=== PATIENT | male | born 1985 | race Two or more races ===

== ENCOUNTER 2019-12-31 04:19 | Inpatient (IN) | payer MEDICAID ==
[~2019-12-31] VITALS: Ht 157.5 cm; Wt 64.0 kg
[2019-12-31 04:38] VITALS: BP 128/79
[2019-12-31] MEDS ORDERED: Dicyclomine HCl 10mg/5ml oral soln ORAL ONE (05:00)
[2019-12-31] MEDS ORDERED: Lidocaine 2% Visc 15ml soln ORAL ONE (05:00)
[2019-12-31] MEDS ORDERED: Mylanta II UD 30ml ORAL ONE (05:00)
[2019-12-31] MEDS ORDERED: Omnipaque-300 100ml vial INJ PRN (05:00)
[2019-12-31 05:07] LABS: APPEARANCE,URINE CLEAR; BILIRUBIN, URINE NEGATIVE (NEGATIVE); GLUCOSE, URINE (UA) NEGATIVE (NEGATIVE); KETONES,URINE 2+ (NEGATIVE); LEUKOCYTE ESTERASE ,URINE 1+ (NEGATIVE); NITRITE,URINE NEGATIVE (NEGATIVE); PH,URINE 7 (4.5-8.0); PROTEIN,URINE 3+ (NEGATIVE); UROBILINOGEN,URINE 1 MG/DL (0.0-1.0)
[2019-12-31 05:32] LABS: BASOPHILS % (AUTO) 0.8 % (0.0-2.0); EOSINOPHILS % (AUTO) 0.2 % (0.0-3.0); HEMATOCRIT 51.8 % (42.0-52.0); LYMPHOCYTES % (AUTO) 13.2 % (20.0-45.0); MEAN CORPUSCULAR VOLUME 89 FL (80-99); MONOCYTES % (AUTO) 9.5 % (1.0-10.0); NEUTROPHILS % (AUTO) 76.3 % (45.0-75.0); PLATELET COUNT 143 K/UL (150-450); RED BLOOD COUNT 5.81 M/UL (4.70-6.10); RED CELL DISTRIBUTION WIDTH 11.3 % (11.6-14.8); WHITE BLOOD COUNT 10.7 K/UL (4.8-10.8)
[2019-12-31 05:38] LABS: ANION GAP 10 mmol/L (5-15); BLOOD UREA NITROGEN 8 mg/dL (7-18); CALCIUM 8.8 MG/DL (8.5-10.1); CARBON DIOXIDE 27 MMOL/L (21-32); CHLORIDE 99 MMOL/L (98-107); CREATININE 0.9 MG/DL (0.55-1.30); POTASSIUM 3.4 MMOL/L (3.5-5.1); SODIUM 136 MMOL/L (136-145)
[2019-12-31 05:45] LABS: ALANINE AMINOTRANSFERASE 80 U/L (12-78); ALBUMIN 4.4 G/DL (3.4-5.0); ALBUMIN/GLOBULIN RATIO 1.3 (1.0-2.7); ALKALINE PHOSPHATASE 57 U/L (46-116); ASPARTATE AMINO TRANSFERASE 99 U/L (15-37); BILIRUBIN,TOTAL 2.2 MG/DL (0.2-1.0)
[2019-12-31 05:46] LABS: COLOR,URINE AMBER
[2019-12-31 05:51] LABS: BILIRUBIN,DIRECT 0.5 MG/DL (0.0-0.3)
--- NOTE | 2019-12-31 06:19 | Emergency Room Report ---
History of Present Illness General Chief Complaint: Abdominal Pain Source: Patient Present Illness HPI Patient is a 34-year-old male presents for increased abdominal discomfort. Reports having 3 days of epigastric pain associated nausea. Reports having some vomiting as well as decreased appetite. States has not been able to eat without any pain. Reports having pain radiating to his back. Prior history of alcohol abuse and states he used to drink heavily but does not drink for several weeks. Denies any hematemesis. Had not been have any bloody stools. Allergies: Coded Allergies: No Known Allergies (Unverified , 12/31/19) COVID-19 Screening Contact w/high risk pt: No Experienced COVID-19 symptoms?: No COVID-19 Testing performed SURFACE MINER: No Patient History Past Medical History: see triage record Reviewed Nursing Documentation: PMH: Agreed; PSxH: Agreed Nursing Documentation-PMH Past Medical History: No Stated History Review of Systems All Other Systems: negative except mentioned in HPI Physical Exam Vital Signs Date Time Temp Pulse Resp B/P (MAP) Pulse Ox O2 Delivery O2 Flow Rate FiO2 12/31/19 04:29 97.9 80 18 136/82 (100) 94 Room Air Sp02 EP Interpretation: reviewed, normal General Appearance: normal inspection, well appearing, no apparent distress, alert, GCS 15 Head: atraumatic ENT: normal ENT inspection, hearing grossly normal, normal voice Neck: normal inspection, full range of motion, supple, no bony tend Respiratory: normal inspection, lungs clear, normal breath sounds, no respiratory distress, no retraction, no wheezing Cardiovascular #1: regular rate, rhythm, no edema Gastrointestinal: normal inspection, normal bowel sounds, soft, no guarding, no hernia, tenderness - epigastric tenderness Genitourinary: no CVA tenderness Musculoskeletal: normal inspection, back normal, normal range of motion Neurologic: alert, responsive, speech normal, normal inspection Psychiatric: normal inspection, judgement/insight normal, mood/affect normal Medical Decision Making Diagnostic Impression: Primary Impression: Pancreatitis Additional Impression: Alcohol abuse ER Course Patient presented for abdominal pain. Differential diagnosis include was not limited to pancreatitis, bowel obstruction, gastritis, ulcer disease among others. Because of complexity of patient's case laboratory tests and imaging st udies were ordered. Laboratory studies showed elevated bilirubin as well as markedly elevated lipase. He started on IV fluids and given IV pain medications. Patient's pancreatitis may be related to alcohol use however he denies alcohol use recently. He did not have any improvement with a GI cocktail. Dr. Covarrubias was contacted for inpatient management. Labs Test 12/31/19 04:46 12/31/19 06:05 White Blood Count 10.7 K/UL (4.8-10.8) Red Blood Count 5.81 M/UL (4.70-6.10) Hemoglobin 19.0 G/DL (14.2-18.0) Hematocrit 51.8 % (42.0-52.0) Mean Corpuscular Volume 89 FL (80-99) Mean Corpuscular Hemoglobin 32.8 PG (27.0-31.0) Mean Corpuscular Hemoglobin Concent 36.7 G/DL (32.0-36.0) Red Cell Distribution Width 11.3 % (11.6-14.8) Platelet Count 143 K/UL (150-450) Mean Platelet Volume 9.5 FL (6.5-10.1) Neutrophils (%) (Auto) 76.3 % (45.0-75.0) Lymphocytes (%) (Auto) 13.2 % (20.0-45.0) Monocytes (%) (Auto) 9.5 % (1.0-10.0) Eosinophils (%) (Auto) 0.2 % (0.0-3.0) Basophils (%) (Auto) 0.8 % (0.0-2.0) Prothrombin Time 10.9 SEC (9.30-11.50) Prothromb Time International Ratio 1.0 (0.9-1.1) Activated Partial Thromboplast Time 28 SEC (23-33) Urine Color Anita Urine Appearance Clear Urine pH 7 (4.5-8.0) Urine Specific [place] 1.015 (1.005-1.035) Urine Protein 3+ (NEGATIVE) Urine Glucose (UA) Negative (NEGATIVE) Urine Ketones 2+ (NEGATIVE) Urine Blood 2+ (NEGATIVE) Urine Nitrite Negative (NEGATIVE) Urine Bilirubin Negative (NEGATIVE) Urine Urobilinogen 1 MG/DL (0.0-1.0) Urine Leukocyte Esterase 1+ (NEGATIVE) Sodium Level 136 MMOL/L (136-145) Potassium Level 3.4 MMOL/L (3.5-5.1) Chloride Level 99 MMOL/L (98-107) Carbon Dioxide Level 27 MMOL/L (21-32) Anion Gap 10 mmol/L (5-15) Blood Urea Nitrogen 8 mg/dL (7-18) Creatinine 0.9 MG/DL (0.55-1.30) Estimat Glomerular Filtration Rate > 60 mL/min (>60) Glucose Level 119 MG/DL (74-106) Calcium Level 8.8 MG/DL (8.5-10.1) Total Bilirubin 2.2 MG/DL (0.2-1.0) Direct Bilirubin 0.5 MG/DL (0.0-0.3) Aspartate Amino Transf (AST/SGOT) 99 U/L (15-37) Alanine Aminotransferase (ALT/SGPT) 80 U/L (12-78) Alkaline Phosphatase 57 U/L (46-116) Troponin I 0.000 ng/mL (0.000-0.056) Total Protein 7.8 G/DL (6.4-8.2) Albumin 4.4 G/DL (3.4-5.0) Globulin 3.4 g/dL Albumin/Globulin Ratio 1.3 (1.0-2.7) Lipase 5480 U/L (73-393) Last Vital Signs Date Time Temp Pulse Resp B/P (MAP) Pulse Ox O2 Delivery O2 Flow Rate FiO2 12/31/19 04:38 97.9 75 18 128/79 97 Room Air Disposition: ADMITTED INPATIENT Condition: Stable Referrals: NOT CHOSEN IPA/,REFERRING (PCP) John Smith MD Dec 31, 2019 06:19
[2019-12-31] MEDS ORDERED: Morphine Sulfate 4mg/ml Inj (IV USE ONLY) IVP ONE (06:30)
--- NOTE | 2019-12-31 07:07 | Diagnostic Imaging Report ---
EXAM: CT Abdomen and Pelvis With Intravenous Contrast CLINICAL HISTORY: PAIN TECHNIQUE: Axial computed tomography images of the abdomen and pelvis with intravenous contrast. CTDI is 4.50 mGy and DLP is 227.90 mGy-cm. One or more of the following dose reduction techniques were used: automated exposure control, adjustment of the mA and/or kV according to patient size, use of iterative reconstruction technique. COMPARISON: No relevant imaging studies available. FINDINGS: Lower thorax: Mild dependent atelectasis, left greater than right. Liver: Diffuse low-attenuation throughout the liver parenchyma. No focal liver lesion. Liver contour is smooth. Portal vein is patent. The liver measures 20.7 cm craniocaudal dimension. Gallbladder and biliary tree: Gallbladder is unremarkable. No biliary dilatation. Spleen: Normal volume. Pancreas: There is pancreatic fat stranding. There is also an ovoid hypoattenuating fluid collection anterior inferior to the pancreatic head measuring 4.5 cm x 3.2 cm x 3.2 cm; no air is identified within this fluid collection. There is a second hyperattenuating fluid collection anterior to the pancreatic tail measuring 3.6 cm x 1.8 cm x 1.6 cm; no air is identified within this fluid. There is enhancement of the pancreas parenchyma. Splenic artery is grossly unremarkable. The proximal and mid distal vein is patent but the distal splenic vein is diminutive. Adrenal glands: Unremarkable. Kidneys: Symmetric renal enhancement. No hydronephrosis. Vasculature: Abdominal aorta is normal in diameter. Lymph nodes: No retroperitoneal or mesenteric lymphadenopathy. Peritoneum: Small volume of pelvic free fluid. No free air. GI tract: There is mild mucosal thickening of the first second, and third segments of the duodenum, likely reactive from pancreatitis. No bowel obstruction. Normal appendix. Urinary bladder: Partially distended. Ureteral jet of contrast is noted on the left. Reproductive organs: Unremarkable. Soft tissues: No acute abdominal wall findings. Bones: No acute skeletal findings. IMPRESSION: 1. Acute pancreatitis with two adjacent cystic structures, one anterior to the pancreatic head and the second located anterior to the pancreatic tail. These likely represent pseudocysts. 2. Mild mucosal thickening of the duodenum likely reactive secondary to the pancreatitis. Duodenitis can have a similar appearance but felt to be less likely. 3. Hepatic steatosis and mild hepatomegaly.
[2019-12-31 07:10] VITALS: BP 119/76
[2019-12-31 08:22] VITALS: BP 140/88
--- NOTE | 2019-12-31 08:40 | History and Physical ---
History of Present Illness General Date patient seen: Dec 31, 2019 Reason for Hospitalization: Abdominal Pain Present Illness HPI 34 year old male with history of pancreatitis few months ago presented with abdominal pain. Epigastric, radiating to the back, associated with nausea and vomitting. Has been drinking heavily. Because he "likes it". He has been unable to eat due to severe pain. Denies blood in his vomitus or in his stool. no recent travel or sick contacts. PMH:Pancreatitis Past surgical history: none Social history: heavy etoh use, denies tobacco or illicit drugs Family history: Father alcoholic but has stopped drinikiing Allergies: Coded Allergies: No Known Allergies (Unverified , 12/31/19) COVID-19 Screening Contact w/high risk pt: No Experienced COVID-19 symptoms?: No Patient History Healthcare decision maker Resuscitation status Advanced Directive on File Review of Systems Constitutional: Denies: no symptoms, see HPI, chills, sweats, fever, malaise, weakness, other Eye: Denies: no symptoms, see HPI, eye pain, blurred vision, tearing, double vision, nose pain, nose congestion, acuity changes, discharge, other ENT: Denies: no symptoms, see HPI, ear pain, ear discharge, nose pain, nose congestion, throat pain, throat swelling, mouth pain, hearing loss, nasal discharge, other Respiratory: Denies: no symptoms, see HPI, cough, orthopnea, shortness of breath, stridor, wheezing, LYMAN, sputum, other Cardiovascular: Denies: no symptoms, see HPI, chest pain, edema, palpitations, syncope, PND, other Gastrointestinal: Reports: see HPI, abdominal pain, nausea, vomiting Genitourinary: Denies: no symptoms, see HPI, discharge, dysuria, frequency, hematuria, pain, retention, incontinence, urgency, vag bleed/dc, other Musculoskeletal: Denies: no symptoms, see HPI, back pain, gout, joint pain, joint swelling, muscle pain, muscle stiffness, other Skin: Denies: no symptoms, see HPI, rash, change in color, change in hair/nails, dryness, lesions, other Psychiatric: Denies: no symptoms, see HPI, prior hx, anxiety, depressed feelings, emotional problems, SI, HI, hallucinations, other Neurological: Denies: no symptoms, see HPI, headache, numbness, paresthesia, seizure, tingling, tremors, focal weakness, syncope, dizziness, other Endocrine: Denies: no symptoms, see HPI, excessive sweating, flushing, intolerance to temperature, increased thirst, increased urine, unexplained weight loss, other Hematologic/Lymphatic: Denies: no symptoms, see HPI, anemia, blood clots, easy bleeding, easy bruising, swollen glands, diathesis, other Physical Exam General Appearance: WD/WN, no apparent distress, alert Lines, tubes and drains: peripheral HEENT: normocephalic, anicteric, mucous membranes moist, PERRL, EOMI Neck: non-tender, normal alignment, supple, normal inspection Respiratory/Chest: chest wall non-tender, lungs clear, normal breath sounds, no respiratory distress, no accessory muscle use Cardiovascular/Chest: normal peripheral pulses, normal rate, regular rhythm Abdomen: normal bowel sounds, soft, distended, tender - epigastirc Extremities: normal range of motion, non-tender, no calf tenderness, no edema Skin Exam: normal pigmentation Musculoskeletal: normal muscle bulk Last 24 Hour Vital Signs Date Time Temp Pulse Resp B/P (MAP) Pulse Ox O2 Delivery O2 Flow Rate FiO2 12/31/19 08:22 97.4 76 16 140/88 (105) 97 12/31/19 08:03 97.9 86 20 122/70 100 Room Air 12/31/19 07:10 98.2 74 16 119/76 99 Room Air 12/31/19 06:55 97.9 12/31/19 04:38 97.9 75 18 128/79 97 Room Air 12/31/19 04:38 75 18 Room Air 12/31/19 04:29 97.9 80 18 136/82 (100) 94 Room Air Intake and Output 12/30/19 12/31/19 19:00 07:00 Intake Total 1000 ml Balance 1000 ml Intake Oral 0 ml IV Total 1000 ml Laboratory Tests Test 12/31/19 04:46 12/31/19 06:05 White Blood Count 10.7 K/UL (4.8-10.8) Red Blood Count 5.81 M/UL (4.70-6.10) Hemoglobin 19.0 G/DL (14.2-18.0) *H Hematocrit 51.8 % (42.0-52.0) Mean Corpuscular Volume 89 FL (80-99) Mean Corpuscular Hemoglobin 32.8 PG (27.0-31.0) H Mean Corpuscular Hemoglobin Concent 36.7 G/DL (32.0-36.0) H Red Cell Distribution Width 11.3 % (11.6-14.8) L Platelet Count 143 K/UL (150-450) L Mean Platelet Volume 9.5 FL (6.5-10.1) Neutrophils (%) (Auto) 76.3 % (45.0-75.0) H Lymphocytes (%) (Auto) 13.2 % (20.0-45.0) L Monocytes (%) (Auto) 9.5 % (1.0-10.0) Eosinophils (%) (Auto) 0.2 % (0.0-3.0) Basophils (%) (Auto) 0.8 % (0.0-2.0) Prothrombin Time 10.9 SEC (9.30-11.50) Prothromb Time International Ratio 1.0 (0.9-1.1) Activated Partial Thromboplast Time 28 SEC (23-33) Urine Color Anita Urine Appearance Clear Urine pH 7 (4.5-8.0) Urine Specific [place] 1.015 (1.005-1.035) Urine Protein 3+ (NEGATIVE) H Urine Glucose (UA) Negative (NEGATIVE) Urine Ketones 2+ (NEGATIVE) H Urine Blood 2+ (NEGATIVE) H Urine Nitrite Negative (NEGATIVE) Urine Bilirubin Negative (NEGATIVE) Urine Ictotest Neg (NEGATIVE) Urine Urobilinogen 1 MG/DL (0.0-1.0) H Urine Leukocyte Esterase 1+ (NEGATIVE) H Urine RBC 2-4 /HPF (0 - 0) H Urine WBC 0 /HPF (0 - 0) Urine Squamous Epithelial Cells None /LPF (NONE/OCC) Urine Bacteria None /HPF (NONE) Urine Mucus Moderate /LPF (NONE/OCC) H Sodium Level 136 MMOL/L (136-145) Potassium Level 3.4 MMOL/L (3.5-5.1) L Chloride Level 99 MMOL/L (98-107) Carbon Dioxide Level 27 MMOL/L (21-32) Anion Gap 10 mmol/L (5-15) Blood Urea Nitrogen 8 mg/dL (7-18) Creatinine 0.9 MG/DL (0.55-1.30) Estimat Glomerular Filtration Rate > 60 mL/min (>60) Glucose Level 119 MG/DL (74-106) H Calcium Level 8.8 MG/DL (8.5-10.1) Total Bilirubin 2.2 MG/DL (0.2-1.0) H Direct Bilirubin 0.5 MG/DL (0.0-0.3) H Aspartate Amino Transf (AST/SGOT) 99 U/L (15-37) H Alanine Aminotransferase (ALT/SGPT) 80 U/L (12-78) H Alkaline Phosphatase 57 U/L (46-116) Troponin I 0.000 ng/mL (0.000-0.056) Total Protein 7.8 G/DL (6.4-8.2) Albumin 4.4 G/DL (3.4-5.0) Globulin 3.4 g/dL Albumin/Globulin Ratio 1.3 (1.0-2.7) Lipase 5480 U/L (73-393) H Serum Alcohol < 3 mg/dL Height (Feet): 5 Height (Inches): 2.00 Weight (Pounds): 140 Medications Current Medications Medications (Trade) Dose Ordered Sig/Toro Route PRN Reason Start Time Stop Time Status Last Admin Dose Admin Iohexol (OMNIPAQUE-300 100ml) 100 ml NOW PRN INJ Radiology Procedure 12/31/19 05:00 01/02/20 04:59 Assessment/Plan Problem List: (1) Pseudocyst of pancreas ICD Codes: K86.3 - Pseudocyst of pancreas SNOMED: 427957604 (2) Pancreatitis ICD Codes: K85.90 - Acute pancreatitis without necrosis or infection, unspecified SNOMED: 16614122 (3) Alcohol abuse ICD Codes: F10.10 - Alcohol abuse, uncomplicated SNOMED: 40327521 Status: stable Assessment/Plan: 34 year old male with history of etoh pancreatitis presents with another episode of pancreatitis. CT abdomen pelvis revealed pancreatitis with pseudocyst. #Pancreatitis with psudocyst #Etoh abuse admit medsurg aggressive ivf I's and O's thiamine GI and surgery consults counselled extensively regarding etoh abuse and dangers of continued use. #Hypokalemia replace vte ppx: Lovenox GI ppx PPI Code status: full code I spent 72 minutes on this encounter. 35 minutes spent on counselling and care coordination. Plan of care d/w patient, RN and consultants. Melvin Covarrubias M.D. Dec 31, 2019 08:39
[2019-12-31] MEDS ORDERED: Milk of Magnesia 30ml Ud ORAL PRN (08:45)
[2019-12-31] MEDS ORDERED: Miralax 17gm pkt ORAL PRN (08:45)
[2019-12-31] MEDS ORDERED: Zolpidem 5mg tab ORAL PRN (08:45)
[2019-12-31] MEDS ORDERED: LORazepam Inj 2mg/ml 1ml IV PRN (08:45)
[2019-12-31] MEDS ORDERED: Albuterol/Ipratropium 3ml neb HHN PRN (08:45)
[2019-12-31] MEDS: HYDROmorphone 1mg/ml Carpuject IVP PRN ×3 (09:31→23:02)
--- NOTE | 2019-12-31 10:11 | General Progress Note ---
Subjective ROS Limited/Unobtainable: Yes Allergies: Coded Allergies: No Known Allergies (Unverified , 12/31/19) Objective Last 24 Hour Vital Signs Date Time Temp Pulse Resp B/P (MAP) Pulse Ox O2 Delivery O2 Flow Rate FiO2 12/31/19 09:49 Room Air 12/31/19 08:22 97.4 76 16 140/88 (105) 97 12/31/19 08:03 97.9 86 20 122/70 100 Room Air 12/31/19 07:10 98.2 74 16 119/76 99 Room Air 12/31/19 06:55 97.9 12/31/19 04:38 97.9 75 18 128/79 97 Room Air 12/31/19 04:38 75 18 Room Air 12/31/19 04:29 97.9 80 18 136/82 (100) 94 Room Air Intake and Output 12/30/19 12/31/19 19:00 07:00 Intake Total 1000 ml Balance 1000 ml Intake Oral 0 ml IV Total 1000 ml Laboratory Tests 12/31/19 04:46: White Blood Count 10.7, Red Blood Count 5.81, Hemoglobin 19.0*H, Hematocrit 51.8, Mean Corpuscular Volume 89, Mean Corpuscular Hemoglobin 32.8H, Mean Corpuscular Hemoglobin Concent 36.7H, Red Cell Distribution Width 11.3L, Platelet Count 143L, Mean Platelet Volume 9.5, Neutrophils (%) (Auto) 76.3H, Lymphocytes (%) (Auto) 13.2L, Monocytes (%) (Auto) 9.5, Eosinophils (%) (Auto) 0.2, Basophils (%) (Auto) 0.8, Prothrombin Time 10.9, Prothromb Time International Ratio 1.0, Activated Partial Thromboplast Time 28, Urine Color Anita, Urine Appearance Clear, Urine pH 7, Urine Specific [place] 1.015, Urine Protein 3+H, Urine Glucose (UA) Negative, Urine Ketones 2+H, Urine Blood 2+H, Urine Nitrite Negative, Urine Bilirubin Negative, Urine Ictotest Neg, Urine Urobilinogen 1H, Urine Leukocyte Esterase 1+H, Urine RBC 2-4H, Urine WBC 0, Urine Squamous Epithelial Cells None, Urine Bacteria None, Urine Mucus ModerateH , Sodium Level 136, Potassium Level 3.4L, Chloride Level 99, Carbon Dioxide Level 27, Anion Gap 10, Blood Urea Nitrogen 8, Creatinine 0.9, Estimat Glomerular Filtration Rate > 60, Glucose Level 119H, Calcium Level 8.8, Total Bilirubin 2.2H, Direct Bilirubin 0.5H, Aspartate Amino Transf (AST/SGOT) 99H, Alanine Aminotransferase (ALT/SGPT) 80H, Alkaline Phosphatase 57, Troponin I 0.000, Total Protein 7.8, Albumin 4.4, Globulin 3.4, Albumin/Globulin Ratio 1.3, Lipase 5480H 12/31/19 06:05: Serum Alcohol < 3 Height (Feet): 5 Height (Inches): 2.00 Weight (Pounds): 140 General Appearance: alert EENT: normal ENT inspection Neck: supple Cardiovascular: tachycardia Respiratory/Chest: decreased breath sounds Abdomen: hypoactive bowel sounds, tender Extremities: non-tender Assessment/Plan Assessment/Plan: ETOH pancreatitis with pseudocyst fatty liver npo ivf pain control thiamine repeat labs Blaze Velasquez MD Dec 31, 2019 10:11
[2019-12-31] MEDS: Pantoprazole Inj IV SCH (11:44)
[2019-12-31] MEDS: Enoxaparin 40mg Inj SUBQ SCH (11:45)
[2019-12-31 12:00] VITALS: BP 144/101
[2019-12-31] MEDS: Thiamine HCl 100 MG in D5W 55 ML IVPB SCH (12:30)
[2019-12-31] MEDS: NS w/KCl 20mEq 1000ml 1,000 ML IV SCH ×3 (12:31→21:12)
--- NOTE | 2019-12-31 14:47 | Consultation ---
History of Present Illness General Date patient seen: Dec 31, 2019 Reason for Hospitalization: Abdominal Pain Present Illness HPI This is a pleasant 34-year-old male with EtOH history significant states began developed arm pain 3 days ago epigastric nature radiation to the back associated nausea no emesis. Positive bowel movement and flatus. Pain cramping generalized pain with distention abdominal 6 out of 10 max 10 out of 10. Identified to have pancreatic cyst pancreatitis admitted further care management surgery called to evaluate assist with care patient seen, patient evaluated, chart reviewed Allergies: Coded Allergies: No Known Allergies (Unverified , 12/31/19) COVID-19 Screening Contact w/high risk pt: No Experienced COVID-19 symptoms?: No Patient History History Provided By: Patient, Medical Record, PMD Healthcare decision maker Resuscitation status Advanced Directive on File Past Medical/Surgical History Past Medical/Surgical History: (1) Pseudocyst of pancreas (2) Alcohol abuse (3) Pancreatitis Review of Systems Review of Symptoms General ROS: no weight loss or fever Psychological ROS: no depression or mood changes, no memory loss Ophthalmic ROS: no visual changes or eye irritation ENT ROS: no nasal congestion, hearing loss, dizziness Allergy and Immunology ROS: no allergic symptoms or urticaria Hematological and Lymphatic ROS: no swollen glands, unusual bleeding or bruising Endocrine ROS: no polyuria, polydipsia, weight changes, temperature intolerance Respiratory ROS: no cough, shortness of breath, or wheezing Cardiovascular ROS: no chest pain or dyspnea on exertion Gastrointestinal ROS: + abdominal pain, -bright red blood in stool. Musculoskeletal ROS: no myalgias or arthralgias Neurological ROS: no TIA or stroke symptoms Dermatological ROS: no new or changing skin lesions, rashes or pruritis Physical Exam Physical Exam General appearance: alert, cooperative, no distress, appears stated age Head: Normocephalic, without obvious abnormality, atraumatic Eyes: conjunctivae/corneas clear. PERRL, EOM's intact. Fundi benign Throat: Lips, mucosa, and tongue normal. Teeth and gums normal Neck: supple, symmetrical, trachea midline, no adenopathy, thyroid: not enlarged, symmetric, no tenderness/mass/nodules, no carotid bruit and no JVD Lungs: clear to auscultation bilaterally Heart: regular rate and rhythm, S1, S2 normal, no murmur, click, rub or gallop Abdomen: soft, epi discomfort-tender. Bowel sounds normal. No masses, no organomegaly Extremities: extremities normal, atraumatic, no cyanosis or edema Pulses: 2+ and symmetric Skin: Skin color, texture, turgor normal. No rashes or lesions Neurologic: Grossly normal Last 24 Hour Vital Signs Date Time Temp Pulse Resp B/P (MAP) Pulse Ox O2 Delivery O2 Flow Rate FiO2 12/31/19 10:01 97.4 12/31/19 09:49 Room Air 12/31/19 09:00 Room Air 12/31/19 08:22 97.4 76 16 140/88 (105) 97 12/31/19 08:03 97.9 86 20 122/70 100 Room Air 12/31/19 07:10 98.2 74 16 119/76 99 Room Air 12/31/19 06:55 97.9 12/31/19 04:38 97.9 75 18 128/79 97 Room Air 12/31/19 04:38 75 18 Room Air 12/31/19 04:29 97.9 80 18 136/82 (100) 94 Room Air Intake and Output 12/30/19 12/31/19 19:00 07:00 Intake Total 1000 ml Balance 1000 ml Intake Oral 0 ml IV Total 1000 ml Laboratory Tests Test 12/31/19 04:46 12/31/19 06:05 White Blood Count 10.7 K/UL (4.8-10.8) Red Blood Count 5.81 M/UL (4.70-6.10) Hemoglobin 19.0 G/DL (14.2-18.0) *H Hematocrit 51.8 % (42.0-52.0) Mean Corpuscular Volume 89 FL (80-99) Mean Corpuscular Hemoglobin 32.8 PG (27.0-31.0) H Mean Corpuscular Hemoglobin Concent 36.7 G/DL (32.0-36.0) H Red Cell Distribution Width 11.3 % (11.6-14.8) L Platelet Count 143 K/UL (150-450) L Mean Platelet Volume 9.5 FL (6.5-10.1) Neutrophils (%) (Auto) 76.3 % (45.0-75.0) H Lymphocytes (%) (Auto) 13.2 % (20.0-45.0) L Monocytes (%) (Auto) 9.5 % (1.0-10.0) Eosinophils (%) (Auto) 0.2 % (0.0-3.0) Basophils (%) (Auto) 0.8 % (0.0-2.0) Prothrombin Time 10.9 SEC (9.30-11.50) Prothromb Time International Ratio 1.0 (0.9-1.1) Activated Partial Thromboplast Time 28 SEC (23-33) Urine Color Anita Urine Appearance Clear Urine pH 7 (4.5-8.0) Urine Specific [place] 1.015 (1.005-1.035) Urine Protein 3+ (NEGATIVE) H Urine Glucose (UA) Negative (NEGATIVE) Urine Ketones 2+ (NEGATIVE) H Urine Blood 2+ (NEGATIVE) H Urine Nitrite Negative (NEGATIVE) Urine Bilirubin Negative (NEGATIVE) Urine Ictotest Neg (NEGATIVE) Urine Urobilinogen 1 MG/DL (0.0-1.0) H Urine Leukocyte Esterase 1+ (NEGATIVE) H Urine RBC 2-4 /HPF (0 - 0) H Urine WBC 0 /HPF (0 - 0) Urine Squamous Epithelial Cells None /LPF (NONE/OCC) Urine Bacteria None /HPF (NONE) Urine Mucus Moderate /LPF (NONE/OCC) H Sodium Level 136 MMOL/L (136-145) Potassium Level 3.4 MMOL/L (3.5-5.1) L Chloride Level 99 MMOL/L (98-107) Carbon Dioxide Level 27 MMOL/L (21-32) Anion Gap 10 mmol/L (5-15) Blood Urea Nitrogen 8 mg/dL (7-18) Creatinine 0.9 MG/DL (0.55-1.30) Estimat Glomerular Filtration Rate > 60 mL/min (>60) Glucose Level 119 MG/DL (74-106) H Calcium Level 8.8 MG/DL (8.5-10.1) Total Bilirubin 2.2 MG/DL (0.2-1.0) H Direct Bilirubin 0.5 MG/DL (0.0-0.3) H Aspartate Amino Transf (AST/SGOT) 99 U/L (15-37) H Alanine Aminotransferase (ALT/SGPT) 80 U/L (12-78) H Alkaline Phosphatase 57 U/L (46-116) Troponin I 0.000 ng/mL (0.000-0.056) Total Protein 7.8 G/DL (6.4-8.2) Albumin 4.4 G/DL (3.4-5.0) Globulin 3.4 g/dL Albumin/Globulin Ratio 1.3 (1.0-2.7) Lipase 5480 U/L (73-393) H Serum Alcohol < 3 mg/dL Height (Feet): 5 Height (Inches): 2.00 Weight (Pounds): 140 Medications Current Medications Medications (Trade) Dose Ordered Sig/Toro Route PRN Reason Start Time Stop Time Status Last Admin Dose Admin Acetaminophen (Tylenol) 650 mg Q4H PRN ORAL Mild Pain (Pain Scale 1-3) 12/31/19 08:45 01/30/20 08:44 Acetaminophen (Tylenol) 650 mg Q4H PRN ORAL Temp >100.5 12/31/19 08:45 01/30/20 08:44 Albuterol/ Ipratropium (Albuterol/ Ipratropium) 3 ml Q4HR PRN HHN Shortness of Breath 12/31/19 08:45 01/05/20 08:44 Bisacodyl (Dulcolax) 10 mg HSPRN PRN RECTAL Constipation 12/31/19 08:45 03/30/20 08:44 Dextrose (Dextrose 50%) 25 ml Q30M PRN IV Hypoglycemia 12/31/19 08:45 03/30/20 08:44 Dextrose (Dextrose 50%) 50 ml Q30M PRN IV Hypoglycemia 12/31/19 08:45 03/30/20 08:44 Diphenhydramine HCl (Benadryl) 25 mg Q6H PRN ORAL Itching/Pruritis 12/31/19 08:45 01/30/20 08:44 Enoxaparin Sodium (Lovenox) 40 mg Q24H SUBQ 12/31/19 10:00 03/30/20 09:59 12/31/19 11:45 Hydromorphone HCl (Dilaudid) 1 mg Q4HR PRN IVP Moderate Pain (Pain Scale 4-6) 12/31/19 08:45 01/07/20 08:44 12/31/19 09:31 Hydromorphone HCl (Dilaudid) 2 mg Q4HR PRN IVP Severe Pain (Pain Scale 7-10) 12/31/19 08:45 01/07/20 08:44 12/31/19 14:20 Iohexol (OMNIPAQUE-300 100ml) 100 ml NOW PRN INJ Radiology Procedure 12/31/19 05:00 01/02/20 04:59 Lorazepam (Ativan 2mg/ml 1ml) 0.5 mg Q4H PRN IV For Anxiety 12/31/19 08:45 01/07/20 08:44 Magnesium Hydroxide (Mom) 30 ml HSPRN PRN ORAL Constipation 12/31/19 08:45 01/30/20 08:44 Ondansetron HCl (Zofran) 4 mg Q6H PRN IVP Nausea & Vomiting 12/31/19 08:45 01/30/20 08:44 Pantoprazole (Protonix) 40 mg DAILY IV 12/31/19 10:00 01/30/20 09:59 12/31/19 11:44 Polyethylene Glycol (Miralax) 17 gm HSPRN PRN ORAL Constipation 12/31/19 08:45 01/30/20 08:44 Potassium Chloride/Sodium Chloride 1,000 ml @ 200 mls/hr Q5H IV 12/31/19 11:30 01/30/20 11:29 12/31/19 12:31 Temazepam (Restoril) 15 mg HSPRN PRN ORAL Insomnia 12/31/19 08:45 01/07/20 08:44 Thiamine HCl 100 mg/Dextrose 56 ml @ 112 mls/hr Q24H IVPB 12/31/19 11:00 01/30/20 10:59 12/31/19 12:30 Zolpidem Tartrate (Ambien) 5 mg HSPRN PRN ORAL Insomnia 12/31/19 08:45 01/07/20 08:44 Assessment/Plan Problem List: (1) Pseudocyst of pancreas Assessment & Plan: Lower thorax: Mild dependent atelectasis, left greater than right. Liver: Diffuse low-attenuation throughout the liver parenchyma. No focal liver lesion. Liver contour is smooth. Portal vein is patent. The liver measures 20.7 cm craniocaudal dimension. Gallbladder and biliary tree: Gallbladder is unremarkable. No biliary dilatation. Spleen: Normal volume. Pancreas: There is pancreatic fat stranding. There is also an ovoid hypoattenuating fluid collection anterior inferior to the pancreatic head measuring 4.5 cm x 3.2 cm x 3.2 cm; no air is identified within this fluid collection. There is a second hyperattenuating fluid collection anterior to the pancreatic tail measuring 3.6 cm x 1.8 cm x 1.6 cm; no air is identified within this fluid. There is enhancement of the pancreas parenchyma. Splenic artery is grossly unremarkable. The proximal and mid distal vein is patent but the distal splenic vein is diminutive. Adrenal glands: Unremarkable. Kidneys: Symmetric renal enhancement. No hydronephrosis. Vasculature: Abdominal aorta is normal in diameter. Lymph nodes: No retroperitoneal or mesenteric lymphadenopathy. Peritoneum: Small volume of pelvic free fluid. No free air. GI tract: There is mild mucosal thickening of the first second, and third segments of the duodenum, likely reactive from pancreatitis. No bowel obstruction. Normal appendix. Urinary bladder: Partially distended. Ureteral jet of contrast is noted on the left. Reproductive organs: Unremarkable. Soft tissues: No acute abdominal wall findings. Bones: No acute skeletal findings. IMPRESSION: 1. Acute pancreatitis with two adjacent cystic structures, one anterior to the pancreatic head and the second located anterior to the pancreatic tail. These likely represent pseudocysts. 2. Mild mucosal thickening of the duodenum likely reactive secondary to the pancreatitis. Duodenitis can have a similar appearance but felt to be less likely. 3. Hepatic steatosis and mild hepatomegaly. ICD Codes: K86.3 - Pseudocyst of pancreas SNOMED: 726250300 (2) Alcohol abuse ICD Codes: F10.10 - Alcohol abuse, uncomplicated SNOMED: 01051073 (3) Pancreatitis Assessment & Plan: 34M pancreatitis etoh related. pseudocyst noted on CT npo iv fluids monitor uop trend labs alcohol cessation f/u imaging 6 weeks will follow with recs thank you ICD Codes: K85.90 - Acute pancreatitis without necrosis or infection, unspecified SNOMED: 27706374 Romeo Doe Dec 31, 2019 14:47
[2019-12-31 16:00] VITALS: BP 129/83
[2019-12-31 20:00] VITALS: BP 130/82
[2020-01-01] VITALS: BP 142/83
[2020-01-01] MEDS: NS w/KCl 20mEq 1000ml 1,000 ML IV SCH ×5 (02:45→22:16)
[2020-01-01] MEDS: HYDROmorphone 1mg/ml Carpuject IVP PRN ×2 (02:57→06:53)
[2020-01-01 04:00] VITALS: BP 122/72
[2020-01-01 06:27] LABS: BASOPHILS % (AUTO) 1.8 % (0.0-2.0); EOSINOPHILS % (AUTO) 0.1 % (0.0-3.0); HEMATOCRIT 48.3 % (42.0-52.0); HEMOGLOBIN 17.5 G/DL (14.2-18.0); LYMPHOCYTES % (AUTO) 10.7 % (20.0-45.0); MEAN CORPUSCULAR VOLUME 90 FL (80-99); MONOCYTES % (AUTO) 7.6 % (1.0-10.0); NEUTROPHILS % (AUTO) 79.8 % (45.0-75.0); PLATELET COUNT 117 K/UL (150-450); RED BLOOD COUNT 5.35 M/UL (4.70-6.10); RED CELL DISTRIBUTION WIDTH 11.5 % (11.6-14.8); WHITE BLOOD COUNT 13.4 K/UL (4.8-10.8)
[2020-01-01 06:55] LABS: ALANINE AMINOTRANSFERASE 49 U/L (12-78); ALBUMIN 3.3 G/DL (3.4-5.0); ALBUMIN/GLOBULIN RATIO 1.1 (1.0-2.7); ALKALINE PHOSPHATASE 46 U/L (46-116); ANION GAP 10 mmol/L (5-15); ASPARTATE AMINO TRANSFERASE 72 U/L (15-37); BILIRUBIN,TOTAL 1.8 MG/DL (0.2-1.0); BLOOD UREA NITROGEN 2 mg/dL (7-18); CALCIUM 8.2 MG/DL (8.5-10.1); CARBON DIOXIDE 24 MMOL/L (21-32); CHLORIDE 100 MMOL/L (98-107); CREATININE 0.7 MG/DL (0.55-1.30); POTASSIUM 4.3 MMOL/L (3.5-5.1); SODIUM 134 MMOL/L (136-145)
[2020-01-01 06:57] LABS: BILIRUBIN,DIRECT 0.6 MG/DL (0.0-0.3)
[2020-01-01 07:01] LABS: AMYLASE 217 U/L (25-115)
[2020-01-01 08:00] VITALS: BP 122/82
[2020-01-01] MEDS: Pantoprazole Inj IV SCH (08:24)
--- NOTE | 2020-01-01 09:19 | General Progress Note ---
Subjective Date patient seen: Jan 01, 2020 ROS Limited/Unobtainable: No Constitutional: Denies: no symptoms, chills, diaphoresis, fever, malaise, weakness, other Cardiovascular: Denies: no symptoms, chest pain, edema, irregular heart rate, lightheadedness, palpitations, syncope, other Respiratory: Denies: no symptoms, cough, orthopnea, shortness of breath, SOB with excertion, SOB at rest, sputum, stridor, wheezing, other Gastrointestinal/Abdominal: Reports: abdominal pain - epigastric- improved Genitourinary: Denies: no symptoms, burning, discharge, frequency, flank pain, hematuria, incontinence, pain, urgency, other Neurologic/Psychiatric: Denies: no symptoms, anxiety, depressed, emotional problems, headache, numbness, paresthesia, pre-existing deficit, seizure, tingling, tremors, weakness, other Endocrine: Denies: no symptoms, excessive sweating, flushing, intolerance to cold, intolerance to heat, increased hunger, increased thirst, increased urine, unexplained weight gain, unexplained weight loss, other Hematologic/Lymphatic: Denies: no symptoms, anemia, easy bleeding, easy bruising, other Allergies: Coded Allergies: No Known Allergies (Unverified , 12/31/19) Subjective t max 101.5 feels better, pain better passing gas, good urine output Objective Last 24 Hour Vital Signs Date Time Temp Pulse Resp B/P (MAP) Pulse Ox O2 Delivery O2 Flow Rate FiO2 01/01/20 08:00 97.9 86 19 122/82 (95) 96 01/01/20 04:00 98.6 84 18 122/72 (89) 96 01/01/20 00:00 99.0 84 18 142/83 (102) 97 12/31/19 21:00 Room Air 12/31/19 20:00 98.2 83 18 130/82 (98) 95 12/31/19 19:04 98.1 12/31/19 16:00 98.1 69 18 129/83 (98) 95 12/31/19 14:50 97.4 12/31/19 12:00 98.0 69 18 144/101 (115) 95 12/31/19 10:01 97.4 12/31/19 09:49 Room Air Intake and Output 12/31/19 01/01/20 19:00 07:00 Intake Total 200 ml 2200 ml Output Total 825 ml 1250 ml Balance -625 ml 950 ml Intake Oral 0 ml IV Total 200 ml 2200 ml Output Urine Total 825 ml 1250 ml # Voids 4 5 # Bowel Movements 2 Laboratory Tests 01/01/20 06:06: White Blood Count 13.4H, Red Blood Count 5.35, Hemoglobin 17.5, Hematocrit 48.3, Mean Corpuscular Volume 90, Mean Corpuscular Hemoglobin 32.7H, Mean Corpuscular Hemoglobin Concent 36.2H, Red Cell Distribution Width 11.5L, Platelet Count 117L , Mean Platelet Volume 10.0, Neutrophils (%) (Auto) 79.8H, Lymphocytes (%) (A uto) 10.7L, Monocytes (%) (Auto) 7.6, Eosinophils (%) (Auto) 0.1, Basophils (%) (Auto) 1.8, Sodium Level 134L, Potassium Level 4.3, Chloride Level 100, Carbon Dioxide Level 24, Anion Gap 10, Blood Urea Nitrogen 2L, Creatinine 0.7, Estimat Glomerular Filtration Rate > 60, Glucose Level 88, Calcium Level 8.2L, Total Bilirubin 1.8H, Direct Bilirubin 0.6H, Aspartate Amino Transf (AST/SGOT) 72H, Alanine Aminotransferase (ALT/SGPT) 49, Alkaline Phosphatase 46, Total Protein 6.2L, Albumin 3.3L, Globulin 2.9, Albumin/Globulin Ratio 1.1, Amylase Level 217H , Lipase 1351H Height (Feet): 5 Height (Inches): 2.00 Weight (Pounds): 140 Objective General Appearance: WD/WN, no apparent distress, alert Lines, tubes and drains: peripheral HEENT: normocephalic, anicteric, mucous membranes moist, PERRL, EOMI Neck: non-tender, normal alignment, supple, normal inspection Respiratory/Chest: chest wall non-tender, lungs clear, normal breath sounds, no respiratory distress, no accessory muscle use Cardiovascular/Chest: normal peripheral pulses, normal rate, regular rhythm Abdomen: normal bowel sounds, soft, distended, tender - epigastirc Extremities: normal range of motion, non-tender, no calf tenderness, no edema Skin Exam: normal pigmentation Musculoskeletal: normal muscle bulk Assessment/Plan Problem List: (1) Pseudocyst of pancreas ICD Codes: K86.3 - Pseudocyst of pancreas SNOMED: 598768891 (2) Pancreatitis ICD Codes: K85.90 - Acute pancreatitis without necrosis or infection, unspecified SNOMED: 38201170 (3) Alcohol abuse ICD Codes: F10.10 - Alcohol abuse, uncomplicated SNOMED: 26167695 Status: stable Assessment/Plan: 34 year old male with history of etoh pancreatitis presents with another episode of pancreatitis. CT abdomen pelvis revealed pancreatitis with pseudocyst. #Pancreatitis with psudocyst #Etoh abuse admit medsurg aggressive ivf advance diet to clears I's and O's thiamine GI and surgery consults repeat imaging in 6 weeks counselled extensively regarding etoh abuse and dangers of continued use. #Hypokalemia replace vte ppx: Lovenox GI ppx PPI Code status: full code I spent 72 minutes on this encounter. 35 minutes spent on counselling and care coordination. Plan of care d/w patient, RN and consultants. Melvin Covarrubias M.D. Jan 01, 2020 09:19
--- NOTE | 2020-01-01 09:28 | General Progress Note ---
Subjective ROS Limited/Unobtainable: Yes Allergies: Coded Allergies: No Known Allergies (Unverified , 12/31/19) Objective Last 24 Hour Vital Signs Date Time Temp Pulse Resp B/P (MAP) Pulse Ox O2 Delivery O2 Flow Rate FiO2 01/01/20 08:00 97.9 86 19 122/82 (95) 96 01/01/20 04:00 98.6 84 18 122/72 (89) 96 01/01/20 00:00 99.0 84 18 142/83 (102) 97 12/31/19 21:00 Room Air 12/31/19 20:00 98.2 83 18 130/82 (98) 95 12/31/19 19:04 98.1 12/31/19 16:00 98.1 69 18 129/83 (98) 95 12/31/19 14:50 97.4 12/31/19 12:00 98.0 69 18 144/101 (115) 95 12/31/19 10:01 97.4 12/31/19 09:49 Room Air Intake and Output 12/31/19 01/01/20 19:00 07:00 Intake Total 200 ml 2200 ml Output Total 825 ml 1250 ml Balance -625 ml 950 ml Intake Oral 0 ml IV Total 200 ml 2200 ml Output Urine Total 825 ml 1250 ml # Voids 4 5 # Bowel Movements 2 Laboratory Tests 01/01/20 06:06: White Blood Count 13.4H, Red Blood Count 5.35, Hemoglobin 17.5, Hematocrit 48.3, Mean Corpuscular Volume 90, Mean Corpuscular Hemoglobin 32.7H, Mean Corpuscular Hemoglobin Concent 36.2H, Red Cell Distribution Width 11.5L, Platelet Count 117L , Mean Platelet Volume 10.0, Neutrophils (%) (Auto) 79.8H, Lymphocytes (%) (Auto) 10.7L, Monocytes (%) (Auto) 7.6, Eosinophils (%) (Auto) 0.1, Basophils (%) (Auto) 1.8, Sodium Level 134L, Potassium Level 4.3, Chloride Level 100, Carbon Dioxide Level 24, Anion Gap 10, Blood Urea Nitrogen 2L, Creatinine 0.7, Estimat Glomerular Filtration Rate > 60, Glucose Level 88, Calcium Level 8.2L, Total Bilirubin 1.8H, Direct Bilirubin 0.6H, Aspartate Amino Transf (AST/SGOT) 72H, Alanine Aminotransferase (ALT/SGPT) 49, Alkaline Phosphatase 46, Total Protein 6.2L, Albumin 3.3L, Globulin 2.9, Albumin/Globulin Ratio 1.1, Amylase Level 217H, Lipase 1351H Height (Feet): 5 Height (Inches): 2.00 Weight (Pounds): 140 General Appearance: alert EENT: normal ENT inspection Neck: supple Cardiovascular: normal rate Respiratory/Chest: lungs clear Abdomen: hypoactive bowel sounds, tender Extremities: non-tender Assessment/Plan Status: stable Assessment/Plan: ETOH pancreatitis with pseudocyst fatty liver start clears ivf pain control thiamine repeat labs Blaze Velasquez MD Jan 01, 2020 09:28
[2020-01-01] MEDS: Enoxaparin 40mg Inj SUBQ SCH (09:42)
[2020-01-01] MEDS: Thiamine HCl 100 MG in D5W 55 ML IVPB SCH (11:18)
[2020-01-01 12:00] VITALS: BP 126/79
--- NOTE | 2020-01-01 13:19 | Surgery Progress Note ---
Surgery Progress Note Subjective Symptoms: improved, tolerating diet, voiding well, passing flatus, BM, pain decreased Objective Last 24 Hour Vital Signs Date Time Temp Pulse Resp B/P (MAP) Pulse Ox O2 Delivery O2 Flow Rate FiO2 01/01/20 12:00 97.9 100 18 126/79 (95) 96 01/01/20 09:00 Room Air 01/01/20 08:00 97.9 86 19 122/82 (95) 96 01/01/20 04:00 98.6 84 18 122/72 (89) 96 01/01/20 00:00 99.0 84 18 142/83 (102) 97 12/31/19 21:00 Room Air 12/31/19 20:00 98.2 83 18 130/82 (98) 95 12/31/19 19:04 98.1 12/31/19 16:00 98.1 69 18 129/83 (98) 95 12/31/19 14:50 97.4 I&O Intake and Output 12/31/19 01/01/20 19:00 07:00 Intake Total 200 ml 2200 ml Output Total 825 ml 1250 ml Balance -625 ml 950 ml Intake Oral 0 ml IV Total 200 ml 2200 ml Output Urine Total 825 ml 1250 ml # Voids 4 5 # Bowel Movements 2 Cardiovascular: RSR Respiratory: clear Abdomen: soft, flat, non-tender, present bowel sounds Extremities: no edema, no tenderness, no cyanosis Laboratory Tests Test 01/01/20 06:06 White Blood Count 13.4 K/UL (4.8-10.8) H Red Blood Count 5.35 M/UL (4.70-6.10) Hemoglobin 17.5 G/DL (14.2-18.0) Hematocrit 48.3 % (42.0-52.0) Mean Corpuscular Volume 90 FL (80-99) Mean Corpuscular Hemoglobin 32.7 PG (27.0-31.0) H Mean Corpuscular Hemoglobin Concent 36.2 G/DL (32.0-36.0) H Red Cell Distribution Width 11.5 % (11.6-14.8) L Platelet Count 117 K/UL (150-450) L Mean Platelet Volume 10.0 FL (6.5-10.1) Neutrophils (%) (Auto) 79.8 % (45.0-75.0) H Lymphocytes (%) (Auto) 10.7 % (20.0-45.0) L Monocytes (%) (Auto) 7.6 % (1.0-10.0) Eosinophils (%) (Auto) 0.1 % (0.0-3.0) Basophils (%) (Auto) 1.8 % (0.0-2.0) Sodium Level 134 MMOL/L (136-145) L Potassium Level 4.3 MMOL/L (3.5-5.1) Chloride Level 100 MMOL/L (98-107) Carbon Dioxide Level 24 MMOL/L (21-32) Anion Gap 10 mmol/L (5-15) Blood Urea Nitrogen 2 mg/dL (7-18) L Creatinine 0.7 MG/DL (0.55-1.30) Estimat Glomerular Filtration Rate > 60 mL/min (>60) Glucose Level 88 MG/DL (74-106) Calcium Level 8.2 MG/DL (8.5-10.1) L Total Bilirubin 1.8 MG/DL (0.2-1.0) H Direct Bilirubin 0.6 MG/DL (0.0-0.3) H Aspartate Amino Transf (AST/SGOT) 72 U/L (15-37) H Alanine Aminotransferase (ALT/SGPT) 49 U/L (12-78) Alkaline Phosphatase 46 U/L (46-116) Total Protein 6.2 G/DL (6.4-8.2) L Albumin 3.3 G/DL (3.4-5.0) L Globulin 2.9 g/dL Albumin/Globulin Ratio 1.1 (1.0-2.7) Amylase Level 217 U/L (25-115) H Lipase 1351 U/L (73-393) H Plan Problems: (1) Pseudocyst of pancreas Assessment & Plan: Lower thorax: Mild dependent atelectasis, left greater than right. Liver: Diffuse low-attenuation throughout the liver parenchyma. No focal liver lesion. Liver contour is smooth. Portal vein is patent. The liver measures 20.7 cm craniocaudal dimension. Gallbladder and biliary tree: Gallbladder is unremarkable. No biliary dilatation. Spleen: Normal volume. Pancreas: There is pancreatic fat stranding. There is also an ovoid hypoattenuating fluid collection anterior inferior to the pancreatic head measuring 4.5 cm x 3.2 cm x 3.2 cm; no air is identified within this fluid collection. There is a second hyperattenuating fluid collection anterior to the pancreatic tail measuring 3.6 cm x 1.8 cm x 1.6 cm; no air is identified within this fluid. There is enhancement of the pancreas parenchyma. Splenic artery is grossly unremarkable. The proximal and mid distal vein is patent but the distal splenic vein is diminutive. Adrenal glands: Unremarkable. Kidneys: Symmetric renal enhancement. No hydronephrosis. Vasculature: Abdominal aorta is normal in diameter. Lymph nodes: No retroperitoneal or mesenteric lymphadenopathy. Peritoneum: Small volume of pelvic free fluid. No free air. GI tract: There is mild mucosal thickening of the first second, and third segments of the duodenum, likely reactive from pancreatitis. No bowel obstruction. Normal appendix. Urinary bladder: Partially distended. Ureteral jet of contrast is noted on the left. Reproductive organs: Unremarkable. Soft tissues: No acute abdominal wall findings. Bones: No acute skeletal findings. IMPRESSION: 1. Acute pancreatitis with two adjacent cystic structures, one anterior to the pancreatic head and the second located anterior to the pancreatic tail. These likely represent pseudocysts. 2. Mild mucosal thickening of the duodenum likely reactive secondary to the pancreatitis. Duodenitis can have a similar appearance but felt to be less likely. 3. Hepatic steatosis and mild hepatomegaly. (2) Alcohol abuse (3) Pancreatitis Assessment & Plan: 34M pancreatitis etoh related. pseudocyst noted on CT npo iv fluids monitor uop trend labs alcohol cessation f/u imaging 6 weeks will follow with recs thank you diet as tolerated labs improved c/d planning outpatient medical f/u Romeo Doe Jan 01, 2020 13:19
[2020-01-01 15:59] VITALS: BP 125/74
[2020-01-01 20:00] VITALS: BP 126/76
[2020-01-02] VITALS: BP 126/79
[2020-01-02] MEDS: NS w/KCl 20mEq 1000ml 1,000 ML IV SCH ×5 (03:01→23:17)
[2020-01-02 04:00] VITALS: BP 130/76
--- NOTE | 2020-01-02 06:51 | General Progress Note ---
Subjective ROS Limited/Unobtainable: Yes Allergies: Coded Allergies: No Known Allergies (Unverified , 12/31/19) Objective Last 24 Hour Vital Signs Date Time Temp Pulse Resp B/P (MAP) Pulse Ox O2 Delivery O2 Flow Rate FiO2 01/02/20 04:00 98.6 89 19 130/76 (94) 100 01/02/20 00:00 98.5 96 19 126/79 (95) 99 01/01/20 22:46 98.5 01/01/20 21:00 Room Air 01/01/20 20:00 98.7 98 18 126/76 (93) 98 01/01/20 16:34 89 18 125/74 96 01/01/20 16:33 96.6 01/01/20 16:04 122 18 125/74 96 01/01/20 15:59 101.5 122 18 125/74 (91) 96 01/01/20 12:00 97.9 100 18 126/79 (95) 96 01/01/20 09:00 Room Air 01/01/20 08:00 97.9 86 19 122/82 (95) 96 Intake and Output 01/01/20 01/02/20 19:00 07:00 Intake Total 1000 ml 400 ml Output Total 2400 ml 1300 ml Balance -1400 ml -900 ml Intake Oral 1000 ml 400 ml Output Urine Total 2400 ml 1300 ml # Voids 5 Height (Feet): 5 Height (Inches): 2.00 Weight (Pounds): 140 General Appearance: alert EENT: normal ENT inspection Neck: supple Cardiovascular: normal peripheral pulses Respiratory/Chest: decreased breath sounds Abdomen: normal bowel sounds, non tender, soft Extremities: non-tender Assessment/Plan Status: stable Assessment/Plan: ETOH pancreatitis with pseudocyst fatty liver had fever last night on reg diet needs repeat CT in 4 weeks ivf pain control thiamine repeat labs Blaze Velasquez MD Jan 02, 2020 06:51
[2020-01-02 08:00] VITALS: BP 135/79
[2020-01-02 08:03] LABS: HEMATOCRIT 44.1 % (42.0-52.0); HEMOGLOBIN 16.1 G/DL (14.2-18.0); MEAN CORPUSCULAR VOLUME 90 FL (80-99); PLATELET COUNT 98 K/UL (150-450); RED BLOOD COUNT 4.88 M/UL (4.70-6.10); RED CELL DISTRIBUTION WIDTH 11.6 % (11.6-14.8); WHITE BLOOD COUNT 10.2 K/UL (4.8-10.8)
[2020-01-02 08:35] LABS: ALANINE AMINOTRANSFERASE 50 U/L (12-78); ALBUMIN 3.1 G/DL (3.4-5.0); ALKALINE PHOSPHATASE 68 U/L (46-116); AMYLASE 83 U/L (25-115); ANION GAP 8 mmol/L (5-15); ASPARTATE AMINO TRANSFERASE 73 U/L (15-37); BILIRUBIN,TOTAL 2.8 MG/DL (0.2-1.0); BLOOD UREA NITROGEN 2 mg/dL (7-18); CALCIUM 8.2 MG/DL (8.5-10.1); CARBON DIOXIDE 26 MMOL/L (21-32); CHLORIDE 103 MMOL/L (98-107); CREATININE 0.7 MG/DL (0.55-1.30); POTASSIUM 4.1 MMOL/L (3.5-5.1); SODIUM 137 MMOL/L (136-145)
[2020-01-02 08:40] LABS: BILIRUBIN,DIRECT 1.7 MG/DL (0.0-0.3)
[2020-01-02] MEDS: Pantoprazole Inj IV SCH (08:41)
[2020-01-02] MEDS: Enoxaparin 40mg Inj SUBQ SCH (08:41)
[2020-01-02] MEDS: Thiamine HCl 100 MG in D5W 55 ML IVPB SCH (10:51)
--- NOTE | 2020-01-02 11:25 | General Progress Note ---
Subjective Constitutional: Denies: no symptoms, chills, diaphoresis, fever, malaise, weakness, other HEENT: Denies: no symptoms, eye pain, blurred vision, tearing, double vision, ear pain, ear discharge, nose pain, nose congestion, throat pain, throat swelling, mouth pain, mouth swelling, other Cardiovascular: Denies: no symptoms, chest pain, edema, irregular heart rate, lightheadedness, palpitations, syncope, other Respiratory: Denies: no symptoms, cough, orthopnea, shortness of breath, SOB with excertion, SOB at rest, sputum, stridor, wheezing, other Gastrointestinal/Abdominal: Denies: no symptoms, abdomen distended, abdominal pain, black stools, tarry stools, blood in stool, constipated, diarrhea, difficulty swallowing, nausea, poor appetite, poor fluid intake, rectal bleeding, vomiting, other Genitourinary: Denies: no symptoms, burning, discharge, frequency, flank pain, hematuria, incontinence, pain, urgency, other Neurologic/Psychiatric: Denies: no symptoms, anxiety, depressed, emotional problems, headache, numbness, paresthesia, pre-existing deficit, seizure, tingling, tremors, weakness, other Endocrine: Denies: no symptoms, excessive sweating, flushing, intolerance to cold, intolerance to heat, increased hunger, increased thirst, increased urine, unexplained weight gain, unexplained weight loss, other Hematologic/Lymphatic: Denies: no symptoms, anemia, easy bleeding, easy bruising, other Allergies: Coded Allergies: No Known Allergies (Unverified , 12/31/19) Subjective no acute events overnight. Patient denies abdominal pain, n/v. Tolerating diet. No fevers. Would like to go home. Bilirubin elevated today. Objective Last 24 Hour Vital Signs Date Time Temp Pulse Resp B/P (MAP) Pulse Ox O2 Delivery O2 Flow Rate FiO2 01/02/20 09:00 Room Air 01/02/20 08:00 98.8 109 20 135/79 (97) 96 01/02/20 04:00 98.6 89 19 130/76 (94) 100 01/02/20 00:00 98.5 96 19 126/79 (95) 99 01/01/20 22:46 98.5 01/01/20 21:00 Room Air 01/01/20 20:00 98.7 98 18 126/76 (93) 98 01/01/20 16:34 89 18 125/74 96 01/01/20 16:33 96.6 01/01/20 16:04 122 18 125/74 96 01/01/20 15:59 101.5 122 18 125/74 (91) 96 01/01/20 12:00 97.9 100 18 126/79 (95) 96 Intake and Output 01/01/20 01/02/20 19:00 07:00 Intake Total 1000 ml 400 ml Output Total 2400 ml 1300 ml Balance -1400 ml -900 ml Intake Oral 1000 ml 400 ml Output Urine Total 2400 ml 1300 ml # Voids 5 Laboratory Tests 01/02/20 07:00: White Blood Count 10.2, Red Blood Count 4.88, Hemoglobin 16.1, Hematocrit 44.1, Mean Corpuscular Volume 90, Mean Corpuscular Hemoglobin 33.0H, Mean Corpuscular Hemoglobin Concent 36.5H, Red Cell Distribution Width 11.6, Platelet Count 98L, Mean Platelet Volume 9.8, Neutrophils (%) (Auto) , Lymphocytes (%) (Auto) , Monocytes (%) (Auto) , Eosinophils (%) (Auto) , Basophils (%) (Auto) , Differential Total Cells Counted 100, Neutrophils % (Manual) 77H, Lymphocytes % (Manual) 13L, Monocytes % (Manual) 9, Eosinophils % (Manual) 1, Basophils % (Manual) 0, Band Neutrophils 0, Platelet Estimate DecreasedL, Platelet Morphology Normal, Red Blood Cell Morphology Normal, Sodium Level 137, Potassium Level 4.1, Chloride Level 103, Carbon Dioxide Level 26, Anion Gap 8, Blood Urea Nitrogen 2L, Creatinine 0.7, Estimat Glomerular Filtration Rate > 60, Glucose Level 90, Calcium Level 8.2L, Total Bilirubin 2.8H, Direct Bilirubin 1.7H, Aspartate Amino Transf (AST/SGOT) 73H, Alanine Aminotransferase (ALT/SGPT) 50, Alkaline Phosphatase 68, Total Protein 6.3L, Albumin 3.1L, Globulin 3.2, Albumin/Globulin Ratio 1.0, Amylase Level 83, Lipase 716H Height (Feet): 5 Height (Inches): 2.00 Weight (Pounds): 140 General Appearance: no apparent distress, alert oriented x3 EENT: PERRL/EOMI Neck: non-tender, normal inspection Cardiovascular: normal rate, regular rhythm, no JVD Respiratory/Chest: chest wall non-tender, lungs clear Abdomen: normal bowel sounds, non tender, soft Extremities: normal range of motion Edema: no edema noted Arm (L), no edema noted Arm (R), no edema noted Leg (L), no edema noted Leg (R), no edema noted Pedal (L), no edema noted Pedal (R), no edema noted Generalized Neurologic: premium representative II-XII grossly normal, oriented x 3 Assessment/Plan Status: stable Assessment/Plan: 34 year old male with history of etoh pancreatitis presents with another episode of pancreatitis. CT abdomen pelvis revealed pancreatitis with pseudocyst. # Pancreatitis with psudocyst #Etoh abuse # Thrombocytopenia - worsening # Transaminitis # Hyperbilirubinemia aggressive ivf advance diet I's and O's thiamine GI and surgery consults repeat imaging in 6 weeks counselled extensively regarding etoh abuse and dangers of continued use. #Hypokalemia replace vte ppx: Lovenox GI ppx PPI Code status: full code I spent 32 minutes on this encounter. 25 minutes spent on counselling and care coordination. Plan of care d/w patient, RN and consultants. Rylan Cedillo D.O Jan 02, 2020 11:25
[2020-01-02 12:00] VITALS: BP 122/74
[2020-01-02 16:00] VITALS: BP 121/70
[2020-01-02 20:00] VITALS: BP 132/72
--- NOTE | 2020-01-02 23:02 | Surgery Progress Note ---
Surgery Progress Note Subjective Symptoms: improved, tolerating diet, voiding well, passing flatus, pain decreased Objective Last 24 Hour Vital Signs Date Time Temp Pulse Resp B/P (MAP) Pulse Ox O2 Delivery O2 Flow Rate FiO2 01/02/20 21:00 Room Air 01/02/20 20:00 97.7 99 20 132/72 (92) 100 01/02/20 16:00 100.0 106 20 121/70 (87) 96 01/02/20 15:49 100.0 01/02/20 12:00 99.0 105 20 122/74 (90) 98 01/02/20 09:00 Room Air 01/02/20 08:00 98.8 109 20 135/79 (97) 96 01/02/20 04:00 98.6 89 19 130/76 (94) 100 01/02/20 00:00 98.5 96 19 126/79 (95) 99 I&O Intake and Output 01/01/20 01/02/20 19:00 07:00 Intake Total 1000 ml 400 ml Output Total 2400 ml 1300 ml Balance -1400 ml -900 ml Intake Oral 1000 ml 400 ml Output Urine Total 2400 ml 1300 ml # Voids 5 Dressing: dry Cardiovascular: RSR Respiratory: clear Abdomen: soft, non-tender, present bowel sounds Extremities: no edema, no tenderness, no cyanosis Laboratory Tests Test 01/02/20 07:00 White Blood Count 10.2 K/UL (4.8-10.8) Red Blood Count 4.88 M/UL (4.70-6.10) Hemoglobin 16.1 G/DL (14.2-18.0) Hematocrit 44.1 % (42.0-52.0) Mean Corpuscular Volume 90 FL (80-99) Mean Corpuscular Hemoglobin 33.0 PG (27.0-31.0) H Mean Corpuscular Hemoglobin Concent 36.5 G/DL (32.0-36.0) H Red Cell Distribution Width 11.6 % (11.6-14.8) Platelet Count 98 K/UL (150-450) L Mean Platelet Volume 9.8 FL (6.5-10.1) Neutrophils (%) (Auto) % (45.0-75.0) Lymphocytes (%) (Auto) % (20.0-45.0) Monocytes (%) (Auto) % (1.0-10.0) Eosinophils (%) (Auto) % (0.0-3.0) Basophils (%) (Auto) % (0.0-2.0) Differential Total Cells Counted 100 Neutrophils % (Manual) 77 % (45-75) H Lymphocytes % (Manual) 13 % (20-45) L Monocytes % (Manual) 9 % (1-10) Eosinophils % (Manual) 1 % (0-3) Basophils % (Manual) 0 % (0-2) Band Neutrophils 0 % (0-8) Platelet Estimate Decreased L Platelet Morphology Normal Red Blood Cell Morphology Normal Sodium Level 137 MMOL/L (136-145) Potassium Level 4.1 MMOL/L (3.5-5.1) Chloride Level 103 MMOL/L (98-107) Carbon Dioxide Level 26 MMOL/L (21-32) Anion Gap 8 mmol/L (5-15) Blood Urea Nitrogen 2 mg/dL (7-18) L Creatinine 0.7 MG/DL (0.55-1.30) Estimat Glomerular Filtration Rate > 60 mL/min (>60) Glucose Level 90 MG/DL (74-106) Calcium Level 8.2 MG/DL (8.5-10.1) L Total Bilirubin 2.8 MG/DL (0.2-1.0) H Direct Bilirubin 1.7 MG/DL (0.0-0.3) H Aspartate Amino Transf (AST/SGOT) 73 U/L (15-37) H Alanine Aminotransferase (ALT/SGPT) 50 U/L (12-78) Alkaline Phosphatase 68 U/L (46-116) Total Protein 6.3 G/DL (6.4-8.2) L Albumin 3.1 G/DL (3.4-5.0) L Globulin 3.2 g/dL Albumin/Globulin Ratio 1.0 (1.0-2.7) Amylase Level 83 U/L (25-115) Lipase 716 U/L (73-393) H Plan Problems: (1) Pseudocyst of pancreas Assessment & Plan: Lower thorax: Mild dependent atelectasis, left greater than right. Liver: Diffuse low-attenuation throughout the liver parenchyma. No focal liver lesion. Liver contour is smooth. Portal vein is patent. The liver measures 20.7 cm craniocaudal dimension. Gallbladder and biliary tree: Gallbladder is unremarkable. No biliary dilatation. Spleen: Normal volume. Pancreas: There is pancreatic fat stranding. There is also an ovoid hypoattenuating fluid collection anterior inferior to the pancreatic head measuring 4.5 cm x 3.2 cm x 3.2 cm; no air is identified within this fluid collection. There is a second hyperattenuating fluid collection anterior to the pancreatic tail measuring 3.6 cm x 1.8 cm x 1.6 cm; no air is identified within this fluid. There is enhancement of the pancreas parenchyma. Splenic artery is grossly unremarkable. The proximal and mid distal vein is patent but the distal splenic vein is diminutive. Adrenal glands: Unremarkable. Kidneys: Symmetric renal enhancement. No hydronephrosis. Vasculature: Abdominal aorta is normal in diameter. Lymph nodes: No retroperitoneal or mesenteric lymphadenopathy. Peritoneum: Small volume of pelvic free fluid. No free air. GI tract: There is mild mucosal thickening of the first second, and third segments of the duodenum, likely reactive from pancreatitis. No bowel obstruction. Normal appendix. Urinary bladder: Partially distended. Ureteral jet of contrast is noted on the left. Reproductive organs: Unremarkable. Soft tissues: No acute abdominal wall findings. Bones: No acute skeletal findings. IMPRESSION: 1. Acute pancreatitis with two adjacent cystic structures, one anterior to the pancreatic head and the second located anterior to the pancreatic tail. These likely represent pseudocysts. 2. Mild mucosal thickening of the duodenum likely reactive secondary to the pancreatitis. Duodenitis can have a similar appearance but felt to be less likely. 3. Hepatic steatosis and mild hepatomegaly. (2) Alcohol abuse (3) Pancreatitis Assessment & Plan: 34M pancreatitis etoh related. pseudocyst noted on CT npo iv fluids monitor uop trend labs alcohol cessation f/u imaging 6 weeks will follow with recs thank you diet as tolerated labs improved c/d planning outpatient medical f/u Romeo Doe Jan 02, 2020 23:02
[2020-01-03] VITALS: BP 129/76
[2020-01-03 04:00] VITALS: BP 126/76
[2020-01-03 07:19] LABS: BASOPHILS % (AUTO) 0.4 % (0.0-2.0); EOSINOPHILS % (AUTO) 1.5 % (0.0-3.0); HEMATOCRIT 49.4 % (42.0-52.0); HEMOGLOBIN 16.9 G/DL (14.2-18.0); LYMPHOCYTES % (AUTO) 14.6 % (20.0-45.0); MEAN CORPUSCULAR VOLUME 100 FL (80-99); MONOCYTES % (AUTO) 7.1 % (1.0-10.0); NEUTROPHILS % (AUTO) 76.4 % (45.0-75.0); PLATELET COUNT 127 K/UL (150-450); RED BLOOD COUNT 4.94 M/UL (4.70-6.10); RED CELL DISTRIBUTION WIDTH 12.2 % (11.6-14.8); WHITE BLOOD COUNT 8.2 K/UL (4.8-10.8)
[2020-01-03 07:57] LABS: ALANINE AMINOTRANSFERASE 55 U/L (12-78); ALBUMIN 3.5 G/DL (3.4-5.0); ALBUMIN/GLOBULIN RATIO 0.9 (1.0-2.7); ALKALINE PHOSPHATASE 85 U/L (46-116); AMYLASE 85 U/L (25-115); ANION GAP 12 mmol/L (5-15); ASPARTATE AMINO TRANSFERASE 65 U/L (15-37); BILIRUBIN,TOTAL 1.5 MG/DL (0.2-1.0); BLOOD UREA NITROGEN 5 mg/dL (7-18); CALCIUM 9.2 MG/DL (8.5-10.1); CARBON DIOXIDE 25 MMOL/L (21-32); CHLORIDE 102 MMOL/L (98-107); CREATININE 0.7 MG/DL (0.55-1.30); POTASSIUM 4.3 MMOL/L (3.5-5.1); SODIUM 138 MMOL/L (136-145)
[2020-01-03 08:00] VITALS: BP 133/80
[2020-01-03 08:01] LABS: BILIRUBIN,DIRECT 0.5 MG/DL (0.0-0.3)
[2020-01-03] MEDS: Pantoprazole Inj IV SCH (08:21)
[2020-01-03] MEDS: Enoxaparin 40mg Inj SUBQ SCH (10:00)
--- NOTE | 2020-01-03 10:37 | General Progress Note ---
Subjective ROS Limited/Unobtainable: Yes Allergies: Coded Allergies: No Known Allergies (Unverified , 12/31/19) Objective Last 24 Hour Vital Signs Date Time Temp Pulse Resp B/P (MAP) Pulse Ox O2 Delivery O2 Flow Rate FiO2 01/03/20 09:00 Room Air 01/03/20 08:00 97.5 18 133/80 (97) 98 01/03/20 04:00 98.2 95 20 126/76 (93) 98 01/03/20 00:00 97.6 96 20 129/76 (93) 100 01/02/20 21:00 Room Air 01/02/20 20:00 97.7 99 20 132/72 (92) 100 01/02/20 16:00 100.0 106 20 121/70 (87) 96 01/02/20 15:49 100.0 01/02/20 12:00 99.0 105 20 122/74 (90) 98 Intake and Output 01/02/20 01/03/20 19:00 07:00 Intake Total 1700 ml 650 ml Output Total 1600 ml Balance 1700 ml -950 ml Intake Oral 600 ml 650 ml IV Total 1100 ml Output Urine Total 1600 ml # Voids 3 Laboratory Tests 01/03/20 05:37: White Blood Count 8.2, Red Blood Count 4.94, Hemoglobin 16.9, Hematocrit 49.4, Mean Corpuscular Volume 100#H, Mean Corpuscular Hemoglobin 34.2H, Mean Corpuscular Hemoglobin Concent 34.3, Red Cell Distribution Width 12.2, Platelet Count 127L, Mean Platelet Volume 13.1H, Neutrophils (%) (Auto) 76.4H, Lymphocytes (%) (Auto) 14.6L, Monocytes (%) (Auto) 7.1, Eosinophils (%) (Auto) 1.5, Basophils (%) (Auto) 0.4, Sodium Level 138, Potassium Level 4.3, Chloride Level 102, Carbon Dioxide Level 25, Anion Gap 12, Blood Urea Nitrogen 5L, Creatinine 0.7, Estimat Glomerular Filtration Rate > 60, Glucose Level 92, Calcium Level 9.2, Phosphorus Level 2.0L, Magnesium Level 2.5H, Total Bilirubin 1.5H, Direct Bilirubin 0.5H, Aspartate Amino Transf (AST/SGOT) 65H, Alanine Am inotransferase (ALT/SGPT) 55, Alkaline Phosphatase 85, C-Reactive Protein, Quantitative 21.8H, Total Protein 7.4, Albumin 3.5, Globulin 3.9, Albumin/Globulin Ratio 0.9L, Amylase Level 85, Lipase 885H Height (Feet): 5 Height (Inches): 2.00 Weight (Pounds): 140 General Appearance: alert EENT: normal ENT inspection Neck: supple Cardiovascular: normal rate Respiratory/Chest: decreased breath sounds Abdomen: normal bowel sounds, non tender, soft Extremities: non-tender Assessment/Plan Status: stable Assessment/Plan: ETOH pancreatitis with pseudocyst fatty liver on reg diet needs repeat CT in 4 weeks pain control thiamine Blaze Velasquez MD Jan 03, 2020 10:37
[2020-01-03] MEDS ORDERED: ACETAMINOPHEN325 M1 ORAL (10:40)
--- NOTE | 2020-01-03 10:43 | Discharge Instructions ---
Discharge Instructions Discharge Instructions Diet: low fat Resume Normal Activity?: Yes Activity: light activity Follow Up Orders Abstain from all alcohol use Follow up with PCP in 1-2 weeks Follow up with Dr. Eva GARCIA in [address] abdomen Repeat CT abdomen in 4 weeks to reassess the pancreatic pseudocyst Should you have recurring abdominal pain or fevers please return to ED for reevaluation For Congestive Heart Failure Reminder Report to your physician any weight gain of 5 pounds or more in one week. Rylan Cedillo D.O Jan 03, 2020 10:43
--- NOTE | 2020-01-03 10:54 | Discharge Summary ---
Discharge Summary Hospital Course Date of Admission Dec 31, 2019 at 05:57 Date of Discharge Admitting Diagnosis pancreatitis, dehydration HPI Rashid Catherine is a 34 year old male who was admitted on Dec 31, 2019 at 05:57 for Pancreatitis, Dehydration Hospital Course 34 year old male with history of etoh pancreatitis presents with another episode of pancreatitis. Patient admits to heavy alcohol use. CT abdomen confirmed acute pancreatitis along with two pseudocyst. Patient was aggressively hydrated with pain control on admission. Lipase over 5000 which downtrended throughout his admission. His diet was advanced from liquid to full which he tolerated. Pain resolved after a few days with minimal use of opioids. No fevers in last 24 hours. Denies n/v/d. Lipase did increase slightly today, but patient otherwise improved and stable for discharge home today. I discussed case with Dr. Velasquez, GI, whom also agrees for safe discharge today. # Pancreatitis with pseudocyst # Etoh abuse # Thrombocytopenia # Transaminitis # Hyperbilirubinemia - long discussion with patient regarding abstinence of alcohol use, patient agrees and understands. He reports he will try to stay away from alcohol. - I instructed patient that he will need to have a repeat CT abdomen with contrast to reevaluate his pseudocyst which he understands and agrees. - I informed patient that should he have any recurring abdominal pain or fever to return to ED for reevaluation - patient to follow up with PCP in 1-2 weeks - patient to follow up with GI following his CT scan I spent 32 minutes on this encounter. 25 minutes spent on counselling and care coordination. Plan of care d/w patient, RN and consultants. Discharge Discharge Vital Signs Last Vital Signs Date Time Temp Pulse Resp B/P (MAP) Pulse Ox O2 Delivery O2 Flow Rate FiO2 01/03/20 09:00 Room Air 01/03/20 08:00 97.5 18 133/80 (97) 98 01/03/20 04:00 95 Discharge Disposition Patient was discharged to Discharge Instructions Discharge Instructions Activity: light activity yRlan Cedillo D.O Jan 03, 2020 10:54
[2020-01-03] MEDS: Thiamine HCl 100 MG in D5W 55 ML IVPB SCH (11:00)
[2020-01-03] MEDS: NS w/KCl 20mEq 1000ml 1,000 ML IV SCH (11:18)
--- NOTE | 2020-01-03 13:47 | Surgery Progress Note ---
Surgery Progress Note Subjective Symptoms: improved, pain absent, tolerating diet, voiding well, passing flatus, BM Objective Last 24 Hour Vital Signs Date Time Temp Pulse Resp B/P (MAP) Pulse Ox O2 Delivery O2 Flow Rate FiO2 01/03/20 09:00 Room Air 01/03/20 08:00 97.5 18 133/80 (97) 98 01/03/20 04:00 98.2 95 20 126/76 (93) 98 01/03/20 00:00 97.6 96 20 129/76 (93) 100 01/02/20 21:00 Room Air 01/02/20 20:00 97.7 99 20 132/72 (92) 100 01/02/20 16:00 100.0 106 20 121/70 (87) 96 01/02/20 15:49 100.0 I&O Intake and Output 01/02/20 01/03/20 19:00 07:00 Intake Total 1700 ml 650 ml Output Total 1600 ml Balance 1700 ml -950 ml Intake Oral 600 ml 650 ml IV Total 1100 ml Output Urine Total 1600 ml # Voids 3 Cardiovascular: RSR Respiratory: clear Abdomen: soft, flat, non-tender, present bowel sounds Extremities: no edema, no tenderness, no cyanosis Laboratory Tests Test 01/03/20 05:37 White Blood Count 8.2 K/UL (4.8-10.8) Red Blood Count 4.94 M/UL (4.70-6.10) Hemoglobin 16.9 G/DL (14.2-18.0) Hematocrit 49.4 % (42.0-52.0) Mean Corpuscular Volume 100 FL (80-99) #H Mean Corpuscular Hemoglobin 34.2 PG (27.0-31.0) H Mean Corpuscular Hemoglobin Concent 34.3 G/DL (32.0-36.0) Red Cell Distribution Width 12.2 % (11.6-14.8) Platelet Count 127 K/UL (150-450) L Mean Platelet Volume 13.1 FL (6.5-10.1) H Neutrophils (%) (Auto) 76.4 % (45.0-75.0) H Lymphocytes (%) (Auto) 14.6 % (20.0-45.0) L Monocytes (%) (Auto) 7.1 % (1.0-10.0) Eosinophils (%) (Auto) 1.5 % (0.0-3.0) Basophils (%) (Auto) 0.4 % (0.0-2.0) Sodium Level 138 MMOL/L (136-145) Potassium Level 4.3 MMOL/L (3.5-5.1) Chloride Level 102 MMOL/L (98-107) Carbon Dioxide Level 25 MMOL/L (21-32) Anion Gap 12 mmol/L (5-15) Blood Urea Nitrogen 5 mg/dL (7-18) L Creatinine 0.7 MG/DL (0.55-1.30) Estimat Glomerular Filtration Rate > 60 mL/min (>60) Glucose Level 92 MG/DL (74-106) Calcium Level 9.2 MG/DL (8.5-10.1) Phosphorus Level 2.0 MG/DL (2.5-4.9) L Magnesium Level 2.5 MG/DL (1.8-2.4) H Total Bilirubin 1.5 MG/DL (0.2-1.0) H Direct Bilirubin 0.5 MG/DL (0.0-0.3) H Aspartate Amino Transf (AST/SGOT) 65 U/L (15-37) H Alanine Aminotransferase (ALT/SGPT) 55 U/L (12-78) Alkaline Phosphatase 85 U/L (46-116) C-Reactive Protein, Quantitative 21.8 mg/dL (0.00-0.90) H Total Protein 7.4 G/DL (6.4-8.2) Albumin 3.5 G/DL (3.4-5.0) Globulin 3.9 g/dL Albumin/Globulin Ratio 0.9 (1.0-2.7) L Amylase Level 85 U/L (25-115) Lipase 885 U/L (73-393) H Plan Problems: (1) Pseudocyst of pancreas Assessment & Plan: Lower thorax: Mild dependent atelectasis, left greater than right. Liver: Diffuse low-attenuation throughout the liver parenchyma. No focal liver lesion. Liver contour is smooth. Portal vein is patent. The liver measures 20.7 cm craniocaudal dimension. Gallbladder and biliary tree: Gallbladder is unremarkable. No biliary dilatation. Spleen: Normal volume. Pancreas: There is pancreatic fat stranding. There is also an ovoid hypoattenuating fluid collection anterior inferior to the pancreatic head measuring 4.5 cm x 3.2 cm x 3.2 cm; no air is identified within this fluid collection. There is a second hyperattenuating fluid collection anterior to the pancreatic tail measuring 3.6 cm x 1.8 cm x 1.6 cm; no air is identified within this fluid. There is enhancement of the pancreas parenchyma. Splenic artery is grossly unremarkable. The proximal and mid distal vein is patent but the distal splenic vein is diminutive. Adrenal glands: Unremarkable. Kidneys: Symmetric renal enhancement. No hydronephrosis. Vasculature: Abdominal aorta is normal in diameter. Lymph nodes: No retroperitoneal or mesenteric lymphadenopathy. Peritoneum: Small volume of pelvic free fluid. No free air. GI tract: There is mild mucosal thickening of the first second, and third segments of the duodenum, likely reactive from pancreatitis. No bowel obstruction. Normal appendix. Urinary bladder: Partially distended. Ureteral jet of contrast is noted on the left. Reproductive organs: Unremarkable. Soft tissues: No acute abdominal wall findings. Bones: No acute skeletal findings. IMPRESSION: 1. Acute pancreatitis with two adjacent cystic structures, one anterior to the pancreatic head and the second located anterior to the pancreatic tail. These likely represent pseudocysts. 2. Mild mucosal thickening of the duodenum likely reactive secondary to the pancreatitis. Duodenitis can have a similar appearance but felt to be less likely. 3. Hepatic steatosis and mild hepatomegaly. (2) Alcohol abuse (3) Pancreatitis Assessment & Plan: 34M pancreatitis etoh related. pseudocyst noted on CT npo iv fluids monitor uop trend labs alcohol cessation f/u imaging 6 weeks will follow with recs thank you diet as tolerated labs improved d/c planning outpatient medical f/u late entry doing well this am wants to go chome d/c plan today Romeo Doe Jan 03, 2020 13:47
== END 2020-01-03 11:40 | disposition home or self-care (01) | DRG 282 ==
LOC: EMR 04:41 → 4E 05:57 → EDBEDREQ 07:14
DX: K85.20 Alcohol induced acute pancreatitis without necrosis or infection (principal); K86.3 Pseudocyst of pancreas; K70.0 Alcoholic fatty liver; D69.6 Thrombocytopenia, unspecified; F10.10 Alcohol abuse, uncomplicated; R74.01 Elevation of levels of liver transaminase levels; E87.6 Hypokalemia
CPT/HCPCS: 36415; 74177; 80053; 81003; 82150; 82248; 83690; 83735; 84100; 84484; 85007; 85025; 85610; 85730; 86140; 86850; 86900; 86901; 96361; 96374; 96375; 99285; G0480; J2405; J7030

== ENCOUNTER 2020-05-19 09:29 | Inpatient (IN) | payer MEDICAID ==
[~2020-05-19] VITALS: Ht 165.1 cm; Wt 64.9 kg
[~2020-05-19 09:29] MED LIST: ACETAMINOPHEN325 M1 ORAL
[2020-05-19] MEDS ORDERED: Pantoprazole Inj ONE (10:22)
[2020-05-19 10:25] LABS: APPEARANCE,URINE CLEAR; BILIRUBIN, URINE NEGATIVE (NEGATIVE); GLUCOSE, URINE (UA) NEGATIVE (NEGATIVE); KETONES,URINE 4+ (NEGATIVE); LEUKOCYTE ESTERASE ,URINE NEGATIVE (NEGATIVE); NITRITE,URINE NEGATIVE (NEGATIVE); PH,URINE 5 (4.5-8.0); PROTEIN,URINE 1+ (NEGATIVE); UROBILINOGEN,URINE NORMAL MG/DL (0.0-1.0)
[2020-05-19] MEDS ORDERED: Pantoprazole Inj IVP ONE (10:30)
[2020-05-19] MEDS ORDERED: Dicyclomine HCl 10mg/5ml oral soln ORAL ONE (10:30)
--- NOTE | 2020-05-19 10:30 | NUR ---
came to er complaints of epigastric pain x 3 days with nausea no vomiting
[2020-05-19 10:37] LABS: BASOPHILS % (AUTO) 0.7 % (0.0-2.0); EOSINOPHILS % (AUTO) 0.9 % (0.0-3.0); HEMOGLOBIN 17.3 G/DL (14.2-18.0); LYMPHOCYTES % (AUTO) 14.4 % (20.0-45.0); MEAN CORPUSCULAR VOLUME 94 FL (80-99); MONOCYTES % (AUTO) 6.7 % (1.0-10.0); NEUTROPHILS % (AUTO) 77.3 % (45.0-75.0); PLATELET COUNT 134 K/UL (150-450); RED BLOOD COUNT 5.43 M/UL (4.70-6.10); RED CELL DISTRIBUTION WIDTH 12.8 % (11.6-14.8); WHITE BLOOD COUNT 9.1 K/UL (4.8-10.8)
[2020-05-19 10:40] LABS: COLOR,URINE YELLOW
[2020-05-19 11:05] LABS: ANION GAP 11 mmol/L (5-15); BLOOD UREA NITROGEN 12 mg/dL (7-18); CARBON DIOXIDE 26 MMOL/L (21-32); CHLORIDE 104 MMOL/L (98-107); CREATININE 0.7 MG/DL (0.55-1.30); POTASSIUM 3.8 MMOL/L (3.5-5.1); SODIUM 141 MMOL/L (136-145)
[2020-05-19 11:08] VITALS: BP 130/80
[2020-05-19 11:11] LABS: ALANINE AMINOTRANSFERASE 60 U/L (12-78); ALBUMIN 4.5 G/DL (3.4-5.0); ALBUMIN/GLOBULIN RATIO 1.4 (1.0-2.7); ALKALINE PHOSPHATASE 64 U/L (46-116); ASPARTATE AMINO TRANSFERASE 48 U/L (15-37); BILIRUBIN,TOTAL 1.9 MG/DL (0.2-1.0)
--- NOTE | 2020-05-19 11:11 | NUR ---
[facility]
--- NOTE | 2020-05-19 11:19 | Diagnostic Imaging Report ---
EXAM: CT Abdomen and Pelvis Without Intravenous Contrast CLINICAL HISTORY: PAIN TECHNIQUE: Axial computed tomography images of the abdomen and pelvis without intravenous contrast. CTDI is 4.5 mGy and DLP is 234.1 mGy-cm. One or more of the following dose reduction techniques were used: automated exposure control, adjustment of the mA and/or kV according to patient size, use of iterative reconstruction technique. COMPARISON: CT abdomen and pelvis 12/31/19 FINDINGS: Lung bases: Unremarkable. No mass. No consolidation. ABDOMEN: Liver: Fatty prominent liver. Gallbladder and bile ducts: Unremarkable. No calcified stones. No ductal dilation. Pancreas: Peripancreatic and upper abdominal stranding and small fluid, consistent with acute pancreatitis. There is a 1.5 x 2.5 cm fluid collection anterior to the body of the pancreas, previously 3.3 x 4 cm, there is a 1.2 x 2.2 cm fluid collection anterior to the body of the pancreas, previously 2.1 x 3.6 cm. These are likely pseudocysts. No ductal dilation. Spleen: Unremarkable. No splenomegaly. Adrenals: Unremarkable. No mass. Kidneys and ureters: Unremarkable. No obstructing stones. No hydronephrosis. Stomach and bowel: Thickening of the adjacent duodenum, likely reactive. No obstruction. PELVIS: Appendix: Normal appendix. Bladder: Mild thickening of the urinary bladder, likely due to underdistention. No stones. Reproductive: Unremarkable as visualized. ABDOMEN and PELVIS: Intraperitoneal space: Unremarkable. No free air. No significant fluid collection. Bones/joints: Partial sacralization left L5. No acute fracture. No dislocation. Soft tissues: Unremarkable. Vasculature: Unremarkable. No abdominal aortic aneurysm. Lymph nodes: Unremarkable. No enlarged lymph nodes. IMPRESSION: 1. Peripancreatic and upper abdominal stranding and small fluid, consistent with acute pancreatitis. 2. There is a 1.5 x 2.5 cm fluid collection anterior to the body of the pancreas, previously 3.3 x 4 cm, there is a 1.2 x 2.2 cm fluid collection anterior to the body of the pancreas, previously 2.1 x 3.6 cm. These are likely pseudocysts. 3. Thickening of the adjacent duodenum, likely reactive. 4. Fatty prominent liver.
--- NOTE | 2020-05-19 11:21 | Emergency Room Report ---
History of Present Illness General Chief Complaint: Abdominal Pain Source: Patient Present Illness HPI Patient is a 34-year-old male who presents to the ER complaining of abdominal pain. Patient states that the pain started after heavy night of drinking Rashad night. He complains of nausea but denies any vomiting. He denies any fever or chills. He denies any diarrhea or constipation. He denies any chest pain or shortness of breath. Allergies: Coded Allergies: No Known Allergies (Unverified , 12/31/19) COVID-19 Screening Contact w/high risk pt: No Experienced COVID-19 symptoms?: No COVID-19 Testing performed INDUSTRIAL CHEMIST: No Patient History Reviewed Nursing Documentation: PMH: Agreed; PSxH: Agreed Nursing Documentation-PMH Hx Cardiac Problems: No Hx Cancer: No Hx Gastrointestinal Problems: Yes - Prior abdominal pain. Hx Neurological Problems: No Review of Systems All Other Systems: negative except mentioned in HPI Physical Exam Vital Signs Date Time Temp Pulse Resp B/P (MAP) Pulse Ox O2 Delivery O2 Flow Rate FiO2 05/19/20 10:05 97.9 76 18 130/80 (97) 98 Sp02 EP Interpretation: reviewed, normal General Appearance: alert, GCS 15, moderate distress Head: normocephalic, atraumatic Eyes: bilateral eye normal inspection, bilateral eye PERRL ENT: hearing grossly normal, normal pharynx, no angioedema, normal voice Neck: full range of motion, supple/symm/no masses Respiratory: chest non-tender, lungs clear, normal breath sounds, speaking full sentences Cardiovascular #1: regular rate, rhythm, no edema Gastrointestinal: other - Epigastric tenderness to palpation no guarding or rebound Rectal: deferred Genitourinary: no CVA tenderness Musculoskeletal: normal range of motion Neurologic: quality assurance group leader III-XII nml as tested, oriented x3 Psychiatric: no suicidal/homicidal ideation Skin: no rash Lymphatic: no adenopathy Medical Decision Making Diagnostic Impression: Primary Impression: Pancreatitis Additional Impressions: Pseudocyst of pancreas Alcohol abuse ER Course Patient kept n.p.o. Patient given IV fluids and IV narcotic pain medication. Patient's lipase is elevated to greater than 2000. His CT demonstrates evidence for acute pancreatitis with pancreatic pseudocyst. Patient will be admitted for further treatment and evaluation. Laboratory Tests Test 05/19/20 10:06 05/19/20 10:25 Urine Color Yellow Urine Appearance Clear Urine pH 5 (4.5-8.0) Urine Specific [place]irconia 1.025 (1.005-1.035) Urine Protein 1+ (NEGATIVE) H Urine Glucose (UA) Negative (NEGATIVE) Urine Ketones 4+ (NEGATIVE) H Urine Blood 1+ (NEGATIVE) H Urine Nitrite Negative (NEGATIVE) Urine Bilirubin Negative (NEGATIVE) Urine Urobilinogen Normal MG/DL (0.0-1.0) Urine Leukocyte Esterase Negative (NEGATIVE) Urine RBC 0-2 /HPF (0 - 0) H Urine WBC 0-2 /HPF (0 - 0) Urine Squamous Epithelial Cells Occasional /LPF Urine Bacteria Occasional /HPF (NONE) Urine Mucus Moderate /LPF (NONE/OCC) H Urine Opiates Screen Negative (NEGATIVE) Urine Barbiturates Screen Negative (NEGATIVE) Phencyclidine (PCP) Screen Negative (NEGATIVE) Urine Amphetamines Screen Negative (NEGATIVE) Urine Benzodiazepines Screen Negative (NEGATIVE) Urine Cocaine Screen Negative (NEGATIVE) Urine Marijuana (THC) Screen Negative (NEGATIVE) White Blood Count 9.1 K/UL (4.8-10.8) Red Blood Count 5.43 M/UL (4.70-6.10) Hemoglobin 17.3 G/DL (14.2-18.0) Hematocrit 51.0 % (42.0-52.0) Mean Corpuscular Volume 94 FL (80-99) Mean Corpuscular Hemoglobin 31.8 PG (27.0-31.0) H Mean Corpuscular Hemoglobin Concent 33.9 G/DL (32.0-36.0) Red Cell Distribution Width 12.8 % (11.6-14.8) Platelet Count 134 K/UL (150-450) L Mean Platelet Volume 11.6 FL (6.5-10.1) H Neutrophils (%) (Auto) 77.3 % (45.0-75.0) H Lymphocytes (%) (Auto) 14.4 % (20.0-45.0) L Monocytes (%) (Auto) 6.7 % (1.0-10.0) Eosinophils (%) (Auto) 0.9 % (0.0-3.0) Basophils (%) (Auto) 0.7 % (0.0-2.0) Prothrombin Time 11.3 SEC (9.30-11.50) Prothrombin Time INR 1.0 (0.9-1.1) Activated Partial Thromboplast Time 30 SEC (23-33) Sodium Level 141 MMOL/L (136-145) Potassium Level 3.8 MMOL/L (3.5-5.1) Chloride Level 104 MMOL/L (98-107) Carbon Dioxide Level 26 MMOL/L (21-32) Anion Gap 11 mmol/L (5-15) Blood Urea Nitrogen 12 mg/dL (7-18) Creatinine 0.7 MG/DL (0.55-1.30) Estimated Glomerular Filtration Rate > 60 mL/min (>60) Glucose Level 113 MG/DL (74-106) H Calcium Level 9.0 MG/DL (8.5-10.1) Magnesium Level 2.3 MG/DL (1.8-2.4) Total Bilirubin 1.9 MG/DL (0.2-1.0) H Direct Bilirubin 0.4 MG/DL (0.0-0.3) H Aspartate Amino Transferase (AST) 48 U/L (15-37) H Alanine Aminotransferase (ALT) 60 U/L (12-78) Alkaline Phosphatase 64 U/L (46-116) Total Protein 7.7 G/DL (6.4-8.2) Albumin 4.5 G/DL (3.4-5.0) Globulin 3.2 g/dL Albumin/Globulin Ratio 1.4 (1.0-2.7) Lipase > 2000 U/L (73-393) H Last Vital Signs Date Time Temp Pulse Resp B/P (MAP) Pulse Ox O2 Delivery O2 Flow Rate FiO2 05/19/20 11:08 97.9 18 130/80 98 05/19/20 11:08 76 Disposition: ADMITTED INPATIENT - Medical surgical floor Condition: Critical Physician Consult: Dr. Pickard at 1210pm Referrals: NON PHYSICIAN (PCP) Additional Instructions: Please note that this report is being documented using [employer] technology. This can lead to erroneous entry secondary to incorrect interpretation by the dictating instrument. Vivian Jackson M.D. May 19, 2020 11:21
[2020-05-19] MEDS ORDERED: Morphine Sulfate 4mg/ml Inj (IV USE ONLY) IVP ONE (11:30)
[2020-05-19 11:31] LABS: BILIRUBIN,DIRECT 0.4 MG/DL (0.0-0.3)
--- NOTE | 2020-05-19 12:00 | NUR ---
admit to hospital for observation
[2020-05-19] MEDS ORDERED: Piperacillin/Tazobactam 3.375 GM in NS 110 ML IVPB SCH (14:00)
--- NOTE | 2020-05-19 14:24 | NUR ---
report given to devonte sher patient is to be transferd to room 205- 2 via [facility]
[2020-05-19 14:25] VITALS: BP 120/80
[2020-05-19] MEDS: D5NS 1,000 ML IV SCH (15:28)
[2020-05-19] MEDS: HYDROmorphone 1mg/ml Carpuject IVP PRN ×2 (15:29→19:46)
[2020-05-19 16:00] VITALS: BP 132/73
--- NOTE | 2020-05-19 16:00 | NUR ---
PATIENT ORIENTED TO ROOM ADMISSION REVIEWED MEDICATED FOR PAIN CALL RENAE IN REACH BED IN LOWEST POSITION
[2020-05-19 20:00] VITALS: BP 138/84
[2020-05-19] MEDS: Piperacillin/Tazobactam 3.375 GM in NS 110 ML IVPB SCH (21:57)
[2020-05-19] MEDS: Heparin 5000 units/ml inj SUBQ SCH (22:01)
[2020-05-20] VITALS: BP 138/76
[2020-05-20] MEDS: D5NS 1,000 ML IV SCH ×3 (00:07→21:00)
[2020-05-20] MEDS: HYDROmorphone 1mg/ml Carpuject IVP PRN ×6 (00:07→21:38)
[2020-05-20 04:00] VITALS: BP 137/77
[2020-05-20] MEDS: Piperacillin/Tazobactam 3.375 GM in NS 110 ML IVPB SCH ×3 (06:30→21:38)
--- NOTE | 2020-05-20 07:59 | History and Physical Report ---
DATE OF ADMISSION: 05/19/2020 CHIEF COMPLAINT: Pancreatitis. HISTORY OF PRESENT ILLNESS: The patient is a 34-year-old male with a history of pancreatitis diagnosed 5 months ago. At that time was related to alcohol. He had been pain free until the when he had a binge of 7 beers. He developed abdominal pain that worsened and presented to the emergency room. On evaluation there, his lipase was greater than 2000. CT scan of the abdomen showed pseudocyst that was small than before with peripancreatic inflammatory changes consistent with pancreatitis. The patient is now admitted for further evaluation and care. PAST MEDICAL HISTORY: As above. PAST SURGICAL HISTORY: None. CURRENT MEDICATIONS: Include only ibuprofen. FAMILY HISTORY: Noncontributory. SOCIAL HISTORY: There is no known history of tobacco or drugs. The patient does drink. REVIEW OF SYSTEMS: Negative except for abdominal pain. PHYSICAL EXAMINATION: VITAL SIGNS: Temperature 97, pulse 77, respirations 18, and blood pressure 152/73. GENERAL: The patient is well-developed, no apparent distress. HEART: Regular. LUNGS: Clear. ABDOMEN: Soft, tender in the midepigastric region. There is no rebound or guarding. EXTREMITIES: No clubbing, cyanosis, or edema. LABORATORY DATA: Labs were reviewed. ASSESSMENT: This is a 34-year-old male admitted with complaints of alcoholic pancreatitis. PLAN: NPO, IV fluids, IV pain medications. Monitor lipase level. Eros Pickard M.D. DR: Jalyn JOB#: [id number] CC:
[2020-05-20 08:00] VITALS: BP 118/72
[2020-05-20] MEDS: Heparin 5000 units/ml inj SUBQ SCH ×2 (08:49→20:29)
[2020-05-20 08:51] LABS: BASOPHILS % (AUTO) 0.5 % (0.0-2.0); EOSINOPHILS % (AUTO) 0.3 % (0.0-3.0); HEMATOCRIT 48.4 % (42.0-52.0); HEMOGLOBIN 16.3 G/DL (14.2-18.0); LYMPHOCYTES % (AUTO) 16.4 % (20.0-45.0); MEAN CORPUSCULAR VOLUME 96 FL (80-99); NEUTROPHILS % (AUTO) 74.9 % (45.0-75.0); PLATELET COUNT 134 K/UL (150-450); RED BLOOD COUNT 5.06 M/UL (4.70-6.10); RED CELL DISTRIBUTION WIDTH 13.1 % (11.6-14.8); WHITE BLOOD COUNT 10.3 K/UL (4.8-10.8)
--- NOTE | 2020-05-20 09:02 | NUR ---
NURSE NOTES: clarified with Dr Pickard regarding admit orders- he stated pt is med surg.
[2020-05-20 09:50] LABS: ALANINE AMINOTRANSFERASE 48 U/L (12-78); ALBUMIN 3.8 G/DL (3.4-5.0); ALBUMIN/GLOBULIN RATIO 1.1 (1.0-2.7); ALKALINE PHOSPHATASE 52 U/L (46-116); ANION GAP 11 mmol/L (5-15); ASPARTATE AMINO TRANSFERASE 27 U/L (15-37); BILIRUBIN,TOTAL 1.3 MG/DL (0.2-1.0); BLOOD UREA NITROGEN 5 mg/dL (7-18); CALCIUM 8.7 MG/DL (8.5-10.1); CARBON DIOXIDE 26 MMOL/L (21-32); CHLORIDE 106 MMOL/L (98-107); CREATININE 0.7 MG/DL (0.55-1.30); POTASSIUM 3.4 MMOL/L (3.5-5.1); SODIUM 143 MMOL/L (136-145)
[2020-05-20 09:55] LABS: BILIRUBIN,DIRECT 0.3 MG/DL (0.0-0.3)
--- NOTE | 2020-05-20 11:09 | Consultation ---
History of Present Illness General Date patient seen: May 20, 2020 Reason for Hospitalization: Abdominal Pain Present Illness HPI This is a 34-year-old male known to me from prior who presented with acute pancreatitis in the past alcohol-related returns after drinking again CT identif ied pseudocyst pancreatic surgery called to evaluate assist with care. Patient seen patient evaluate chart reviewed. Currently no nausea vomiting fever chills. Still states epigastric pain 6 out of 10 cramping no radiation Allergies: Coded Allergies: No Known Allergies (Unverified , 12/31/19) COVID-19 Screening Contact w/high risk pt: No Experienced COVID-19 symptoms?: No Medication History Scheduled PRN Acetaminophen* (Acetaminophen 325MG Tablet*), 650 MG ORAL Q4H PRN Patient History History Provided By: Patient Healthcare decision maker Resuscitation status Advanced Directive on File Past Medical/Surgical History Past Medical/Surgical History: (1) Pseudocyst of pancreas (2) Alcohol abuse (3) Pancreatitis Review of Systems Review of Symptoms General ROS: no weight loss or fever Psychological ROS: no depression or mood changes, no memory loss Ophthalmic ROS: no visual changes or eye irritation ENT ROS: no nasal congestion, hearing loss, dizziness Allergy and Immunology ROS: no allergic symptoms or urticaria Hematological and Lymphatic ROS: no swollen glands, unusual bleeding or bruising Endocrine ROS: no polyuria, polydipsia, weight changes, temperature intolerance Respiratory ROS: no cough, shortness of breath, or wheezing Cardiovascular ROS: no chest pain or dyspnea on exertion Gastrointestinal ROS: denies abdominal pain, bright red blood in stool. Musculoskeletal ROS: no myalgias or arthralgias Neurological ROS: no TIA or stroke symptoms Dermatological ROS: no new or changing skin lesions, rashes or pruritis Physical Exam Physical Exam General appearance: alert, cooperative, no distress, appears stated age Head: Normocephalic, without obvious abnormality, atraumatic Eyes: conjunctivae/corneas clear. PERRL, EOM's intact. Fundi benign Throat: Lips, mucosa, and tongue normal. Teeth and gums normal Neck: supple, symmetrical, trachea midline, no adenopathy, thyroid: not enlarged, symmetric, no tenderness/mass/nodules, no carotid bruit and no JVD Lungs: clear to auscultation bilaterally Heart: regular rate and rhythm, S1, S2 normal, no murmur, click, rub or gallop Abdomen: soft, non-tender. Bowel sounds normal. No masses, no organomegaly Extremities: extremities normal, atraumatic, no cyanosis or edema Pulses: 2+ and symmetric Skin: Skin color, texture, turgor normal. No rashes or lesions Neurologic: Grossly normal Last 24 Hour Vital Signs Date Time Temp Pulse Resp B/P (MAP) Pulse Ox O2 Delivery O2 Flow Rate FiO2 05/20/20 09:00 Room Air 05/20/20 08:00 97.7 82 18 118/72 (87) 97 05/20/20 04:00 98.9 86 18 137/77 (97) 95 05/20/20 00:00 97.6 88 18 138/76 (96) 96 05/19/20 21:00 Room Air 05/19/20 20:00 97.7 88 18 138/84 (102) 96 05/19/20 16:00 97.1 77 18 132/73 (92) 97 05/19/20 15:45 Room Air 05/19/20 14:25 98.2 86 18 120/80 98 Room Air 05/19/20 14:21 98.2 86 18 120/80 98 Room Air 05/19/20 11:08 97.9 18 130/80 98 05/19/20 11:08 76 18 Intake and Output 05/19/20 05/20/20 19:00 07:00 Intake Total 0 ml Output Total 1000 ml Balance 0 ml -1000 ml Intake Oral 0 ml Output Urine Total 1000 ml Laboratory Tests Test 05/20/20 08:41 White Blood Count 10.3 K/UL (4.8-10.8) Red Blood Count 5.06 M/UL (4.70-6.10) Hemoglobin 16.3 G/DL (14.2-18.0) Hematocrit 48.4 % (42.0-52.0) Mean Corpuscular Volume 96 FL (80-99) Mean Corpuscular Hemoglobin 32.2 PG (27.0-31.0) H Mean Corpuscular Hemoglobin Concent 33.6 G/DL (32.0-36.0) Red Cell Distribution Width 13.1 % (11.6-14.8) Platelet Count 134 K/UL (150-450) L Mean Platelet Volume 12.8 FL (6.5-10.1) H Neutrophils (%) (Auto) 74.9 % (45.0-75.0) Lymphocytes (%) (Auto) 16.4 % (20.0-45.0) L Monocytes (%) (Auto) 8.0 % (1.0-10.0) Eosinophils (%) (Auto) 0.3 % (0.0-3.0) Basophils (%) (Auto) 0.5 % (0.0-2.0) Sodium Level 143 MMOL/L (136-145) Potassium Level 3.4 MMOL/L (3.5-5.1) L Chloride Level 106 MMOL/L (98-107) Carbon Dioxide Level 26 MMOL/L (21-32) Anion Gap 11 mmol/L (5-15) Blood Urea Nitrogen 5 mg/dL (7-18) L Creatinine 0.7 MG/DL (0.55-1.30) Estimat Glomerular Filtration Rate > 60 mL/min (>60) Glucose Level 110 MG/DL (74-106) H Calcium Level 8.7 MG/DL (8.5-10.1) Total Bilirubin 1.3 MG/DL (0.2-1.0) H Direct Bilirubin 0.3 MG/DL (0.0-0.3) Aspartate Amino Transf (AST/SGOT) 27 U/L (15-37) Alanine Aminotransferase (ALT/SGPT) 48 U/L (12-78) Alkaline Phosphatase 52 U/L (46-116) Total Protein 7.3 G/DL (6.4-8.2) Albumin 3.8 G/DL (3.4-5.0) Globulin 3.5 g/dL Albumin/Globulin Ratio 1.1 (1.0-2.7) Lipase 1440 U/L (73-393) H Height (Feet): 5 Height (Inches): 5.00 Weight (Pounds): 143 Medications Current Medications Medications (Trade) Dose Ordered Sig/Toro Route PRN Reason Start Time Stop Time Status Last Admin Dose Admin Dextrose/Sodium Chloride 1,000 ml @ 100 mls/hr Q10H IV 05/19/20 15:00 06/18/20 14:59 05/20/20 08:46 Heparin Sodium (Porcine) (Heparin 5000 units/ml) 5,000 units EVERY 12 HOURS SUBQ 05/19/20 21:00 07/03/20 20:59 05/20/20 08:49 Hydromorphone HCl (Dilaudid) 1 mg Q4H PRN IVP For Pain 05/19/20 12:45 05/26/20 12:44 05/20/20 08:48 Ondansetron HCl (Zofran) 4 mg Q6H PRN IVP Nausea & Vomiting 05/19/20 12:45 06/18/20 12:44 Piperacillin Sod/ Tazobactam Sod 3.375 gm/Sodium Chloride 110 ml @ 27.5 mls/hr EVERY 8 HOURS IVPB 05/19/20 22:00 05/26/20 21:59 05/20/20 06:30 Assessment/Plan Problem List: (1) Pseudocyst of pancreas Assessment & Plan: 34-year-old male pancreatic pseudocyst recurrent pancreatitis EtOH related. Recommend alcohol cessation. Okay for diet as lipase improves clinically improving. Trend labs. Pseudocyst seems to be decre asing in size compared to last imaging. No acute intervention planned at this time. Repeat imaging in 6 weeks for resolution outpatient. ABDOMEN: Liver: Fatty prominent liver. Gallbladder and bile ducts: Unremarkable. No calcified stones. No ductal dilation. Pancreas: Peripancreatic and upper abdominal stranding and small fluid, consistent with acute pancreatitis. There is a 1.5 x 2.5 cm fluid collection anterior to the body of the pancreas, previously 3.3 x 4 cm, there is a 1.2 x 2.2 cm fluid collection anterior to the body of the pancreas, previously 2.1 x 3.6 cm. These are likely pseudocysts. No ductal dilation. Spleen: Unremarkable. No splenomegaly. Adrenals: Unremarkable. No mass. Kidneys and ureters: Unremarkable. No obstructing stones. No hydronephrosis. Stomach and bowel: Thickening of the adjacent duodenum, likely reactive. No obstruction. PELVIS: Appendix: Normal appendix. Bladder: Mild thickening of the urinary bladder, likely due to underdistention. No stones. Reproductive: Unremarkable as visualized. ABDOMEN and PELVIS: Intraperitoneal space: Unremarkable. No free air. No significant fluid collection. Bones/joints: Partial sacralization left L5. No acute fracture. No dislocation. Soft tissues: Unremarkable. Vasculature: Unremarkable. No abdominal aortic aneurysm. Lymph nodes: Unremarkable. No enlarged lymph nodes. IMPRESSION: 1. Peripancreatic and upper abdominal stranding and small fluid, consistent with acute pancreatitis. 2. There is a 1.5 x 2.5 cm fluid collection anterior to the body of the pancreas, previously 3.3 x 4 cm, there is a 1.2 x 2.2 cm fluid collection anterior to the body of the pancreas, previously 2.1 x 3.6 cm. These are likely pseudocysts. 3. Thickening of the adjacent duodenum, likely reactive. 4. Fatty prominent liver. ICD Codes: K86.3 - Pseudocyst of pancreas SNOMED: 662421185 (2) Alcohol abuse ICD Codes: F10.10 - Alcohol abuse, uncomplicated SNOMED: 34958665 (3) Pancreatitis ICD Codes: K85.90 - Acute pancreatitis without necrosis or infection, unspecified SNOMED: 29180536 Romeo Doe May 20, 2020 11:09
[2020-05-20 12:00] VITALS: BP 123/77
--- NOTE | 2020-05-20 12:10 | NUR ---
SEVERAL ATTEMPTS TO CALL REPORT FOR PATIENT TXR TO 4TH FLOOR, ACCEPTING RN BUSY NO BED IN ROOM PER ACCEPTING RN
--- NOTE | 2020-05-20 12:46 | NUR ---
patient on unit in room 418-2 report given to tarsha for rn christopher who is busy on unit with another patient
--- NOTE | 2020-05-20 13:00 | NUR ---
NURSE NOTES: Received report from Gifty RAMIREZ, a/a/o x4 laying in bed with no signs of distress or other issues at this time. will review orders and carry on as indicated by MD, I will f/u as needed.
[2020-05-20 16:00] VITALS: BP 111/69
--- NOTE | 2020-05-20 19:06 | NUR ---
NURSE HAND-OFF: Important Events on Shift: stable Patient Status: full code Diet: NPO Pending Orders: Pending Results/Labs: am labs Pending MD notification:[] Latest Vital Signs: Temperature 99.7 , Pulse 79 , B/P 111 /69 , Respiratory Rate 16 , O2 SAT 96 , Room Air, O2 Flow Rate . Vital Sign Comment: stable Latest Castillo Fall Score: 20 Fall Risk: Low Risk Safety Measures: Call light Within Reach, Bed Alarm Zone 1, Side Rails Side Rails x2, Bed position Low and Locked. Fall Precautions: steady gait Patient Fall Education Report given to Karen RAMIREZ, patient in stable condition
[2020-05-20 20:00] VITALS: BP 97/57
[2020-05-21] VITALS: BP 116/70
--- NOTE | 2020-05-21 00:49 | NUR ---
NURSE NOTES: Patient resting comfortably in bed, no s/s of acute distress. IV access patent, dressing dry and intact. Bed low and locked, patient wearing non slip socks.
[2020-05-21 04:00] VITALS: BP 117/68
[2020-05-21] MEDS: Piperacillin/Tazobactam 3.375 GM in NS 110 ML IVPB SCH ×3 (05:01→22:13)
[2020-05-21] MEDS: D5NS 1,000 ML IV SCH (07:00)
[2020-05-21 08:00] VITALS: BP 129/76
--- NOTE | 2020-05-21 08:06 | NUR ---
NURSE NOTES: RN received report from Karen, patient in bed. Patient is aao X4. Patient denies respiratory distress on RA or pain. IV intact, patent, asymptomatic and infusing. Bed in lowest position, locked. Call light within reach and able to make needs known. Plan of care communicated. Will continue to monitor.
[2020-05-21] MEDS: Heparin 5000 units/ml inj SUBQ SCH ×2 (09:59→20:12)
[2020-05-21 12:00] VITALS: BP 129/76
--- NOTE | 2020-05-21 13:09 | Surgery Progress Note ---
Surgery Progress Note Subjective Additional Comments resting comfortable lipase improved diet okay Objective Last 24 Hour Vital Signs Date Time Temp Pulse Resp B/P (MAP) Pulse Ox O2 Delivery O2 Flow Rate FiO2 05/21/20 12:00 97.6 70 18 129/76 (93) 97 05/21/20 09:00 Room Air 05/21/20 08:00 97.9 89 18 129/76 (93) 97 05/21/20 04:00 97.0 79 16 117/68 (84) 98 05/21/20 00:00 97.9 80 16 116/70 (85) 98 05/20/20 22:08 98.7 05/20/20 20:50 Room Air 05/20/20 20:00 98.7 80 16 97/57 (70) 98 05/20/20 17:54 99.7 05/20/20 16:00 99.7 79 16 111/69 (83) 96 I&O Intake and Output 05/20/20 05/21/20 19:00 07:00 # Voids 2 Cardiovascular: RSR Respiratory: clear Abdomen: soft, non-tender, present bowel sounds Extremities: no edema, no tenderness, no cyanosis Laboratory Tests Test 05/21/20 06:00 Lipase 372 U/L (73-393) Plan Problems: (1) Pseudocyst of pancreas Assessment & Plan: 34-year-old male pancreatic pseudocyst recurrent pancreatitis EtOH related. Recommend alcohol cessation. Okay for diet as lipase improves clinically improving. Trend labs. Pseudocyst seems to be decreasing in size compared to last imaging. No acute intervention planned at this time. Repeat imaging in 6 weeks for resolution outpatient. diet labs improved d/c planning ABDOMEN: Liver: Fatty prominent liver. Gallbladder and bile ducts: Unremarkable. No calcified stones. No ductal dilation. Pancreas: Peripancreatic and upper abdominal stranding and small fluid, consistent with acute pancreatitis. There is a 1.5 x 2.5 cm fluid collection anterior to the body of the pancreas, previously 3.3 x 4 cm, there is a 1.2 x 2.2 cm fluid collection anterior to the body of the pancreas, previously 2.1 x 3.6 cm. These are likely pseudocysts. No ductal dilation. Spleen: Unremarkable. No splenomegaly. Adrenals: Unremarkable. No mass. Kidneys and ureters: Unremarkable. No obstructing stones. No hydronephrosis. Stomach and bowel: Thickening of the adjacent duodenum, likely reactive. No obstruction. PELVIS: Appendix: Normal appendix. Bladder: Mild thickening of the urinary bladder, likely due to underdistention. No stones. Reproductive: Unremarkable as visualized. ABDOMEN and PELVIS: Intraperitoneal space: Unremarkable. No free air. No significant fluid collection. Bones/joints: Partial sacralization left L5. No acute fracture. No dislocation. Soft tissues: Unremarkable. Vasculature: Unremarkable. No abdominal aortic aneurysm. Lymph nodes: Unremarkable. No enlarged lymph nodes. IMPRESSION: 1. Peripancreatic and upper abdominal stranding and small fluid, consistent with acute pancreatitis. 2. There is a 1.5 x 2.5 cm fluid collection anterior to the body of the pancreas, previously 3.3 x 4 cm, there is a 1.2 x 2.2 cm fluid collection anterior to the body of the pancreas, previously 2.1 x 3.6 cm. These are likely pseudocysts. 3. Thickening of the adjacent duodenum, likely reactive. 4. Fatty prominent liver. (2) Alcohol abuse (3) Pancreatitis Romeo Doe May 21, 2020 13:09
[2020-05-21 16:00] VITALS: BP 116/75
--- NOTE | 2020-05-21 16:33 | General Progress Note ---
Subjective ROS Limited/Unobtainable: No Constitutional: Reports: no symptoms HEENT: Reports: no symptoms Cardiovascular: Reports: no symptoms Respiratory: Reports: no symptoms Gastrointestinal/Abdominal: Reports: no symptoms Genitourinary: Reports: no symptoms Neurologic/Psychiatric: Reports: no symptoms Endocrine: Reports: no symptoms Hematologic/Lymphatic: Reports: no symptoms Allergies: Coded Allergies: No Known Allergies (Unverified , 12/31/19) All Systems: reviewed and negative except above Subjective decreased abd pain. lipase nml Objective Last 24 Hour Vital Signs Date Time Temp Pulse Resp B/P (MAP) Pulse Ox O2 Delivery O2 Flow Rate FiO2 05/21/20 12:00 97.6 70 18 129/76 (93) 97 05/21/20 09:00 Room Air 05/21/20 08:00 97.9 89 18 129/76 (93) 97 05/21/20 04:00 97.0 79 16 117/68 (84) 98 05/21/20 00:00 97.9 80 16 116/70 (85) 98 05/20/20 22:08 98.7 05/20/20 20:50 Room Air 05/20/20 20:00 98.7 80 16 97/57 (70) 98 05/20/20 17:54 99.7 Intake and Output 05/20/20 05/21/20 19:00 07:00 # Voids 2 Laboratory Tests 05/21/20 06:00: Lipase 372 Height (Feet): 5 Height (Inches): 5.00 Weight (Pounds): 143 General Appearance: WD/WN Respiratory/Chest: lungs clear Abdomen: normal bowel sounds, non tender, soft, no organomegaly Assessment/Plan Problem List: (1) Pancreatitis ICD Codes: K85.90 - Acute pancreatitis without necrosis or infection, unspecified SNOMED: 80130357 Status: stable Assessment/Plan: advance diet dc tomorrow Eros Pickard MD May 21, 2020 16:33
--- NOTE | 2020-05-21 19:29 | NUR ---
NURSE HAND-OFF: Important Events on Shift: check if patient is tolerating regular diet Patient Status: stable Diet: regular Pending Orders: n/a Pending Results/Labs:n/a Pending MD notification:n/a Latest Vital Signs: Temperature 97.9 , Pulse 86 , B/P 116 /75 , Respiratory Rate 18 , O2 SAT 98 , Room Air, O2 Flow Rate . Vital Sign Comment: stable Latest Castillo Fall Score: 20 Fall Risk: Low Risk Safety Measures: Call light Within Reach, Bed Alarm Zone 1, Side Rails Side Rails x2, Bed position Low and Locked. Fall Precautions: Patient Fall Education Report given to
[2020-05-21 20:00] VITALS: BP 120/71
--- NOTE | 2020-05-21 20:30 | NUR ---
NURSE NOTES: Patient resting comfortably in bed, no s/s of acute distress. Patient helped into new gown. IV access patent, dressing dry and intact. Bed low and locked, patient wearing non slip socks.
[2020-05-22] VITALS: BP 112/72
[2020-05-22 04:00] VITALS: BP 105/65
[2020-05-22] MEDS: Piperacillin/Tazobactam 3.375 GM in NS 110 ML IVPB SCH (05:33)
[2020-05-22 06:51] LABS: ANION GAP 9 mmol/L (5-15); BLOOD UREA NITROGEN 7 mg/dL (7-18); CALCIUM 8.8 MG/DL (8.5-10.1); CARBON DIOXIDE 27 MMOL/L (21-32); CHLORIDE 106 MMOL/L (98-107); CREATININE 0.7 MG/DL (0.55-1.30); POTASSIUM 3.7 MMOL/L (3.5-5.1); SODIUM 142 MMOL/L (136-145)
--- NOTE | 2020-05-22 07:15 | NUR ---
NURSE NOTES: Report given to JAMES Woodruff
--- NOTE | 2020-05-22 07:17 | NUR ---
NURSE NOTES: RN received report from Karen and patient in bed. Patient is tolerating diet well. Patient is aaoX4, shows no s/s of respiratory distress or pain. Patient stated that he had diarrhea with some black color yesterday but BM this morning was normal. RN notified Dr. Pickard. No further orders at this time. IV is patent, asymptomatic, clean ,intact. Bed in lowest position, locked, call light within reach and able to make needs known. Will continue to monitor.
[2020-05-22] MEDS: Heparin 5000 units/ml inj SUBQ SCH (09:00)
--- NOTE | 2020-05-22 11:53 | NUR ---
NURSE NOTES: Patient is discharged home. IV and ID band were removed. Asymptomatic on IV site. Patient's vitals stable and aaoX4, denies respiratory distress or pain. Patient's chart is missing so RN created a new list of belongings and signed the form with the patient and gave it to charge nurse Garret. Patient verbalized understanding that when he calls Dr. Pickard, he will send the back to work form and to see the doctor within two weeks of discharge. RN escorted the patient to the lobby where his family daughters and were waiting.
--- NOTE | 2020-05-23 11:17 | Discharge Summary ---
Discharge Summary Discharge Summary _ Date of admission: 05/19/2020 Date of discharge: 05/22/[address] Pickard History of Present Illness and Brief Hospital Course Mr. Timur Catherine is a 34-year-old male with past medical history of pancreatitis and alcohol abuse who presented to ED complaining of abdominal pain. Patient reported heavy alcohol consumption 2 days prior to presentation. Patient was kept n.p.o. and was given IV fluids and pain medications. Patient's lipase was elevated. Abdomen/pelvis CT showed peripancreatic and upper abdominal stranding and small fluid consistent with acute pancreatitis, as well as pseudocysts and fatty prominent liver. Patient was admitted to the hospital for further treatment and evaluation. The pseudocyst seemed to be decreasing in size compared to the last imaging. No acute intervention was planned at this time. Repeat imaging in 6 weeks for resolution was recommended as an outpatient. His lipase level was trending down and patient clinically improved. Patient was educated on alcohol cessation. Patient was medically stable for discharge and was discharged home on 05/22/2020. Consultants: Surgery Dr. Doe Discharge Condition Improved and stable Discharge Activity As tolerated Discharge Diet Regular Final diagnoses Pseudocyst of pancreas Alcohol abuse Acute pancreatitis I have been assigned to dictate discharge summary for this account. I was not involved in the patient's management Shane Ashley May 23, 2020 11:17
== END 2020-05-22 11:57 | disposition home or self-care (01) | DRG 282 ==
LOC: EMR 10:22 → 2E 11:59 → EDBEDREQ 14:14 → 4E 05-20 12:30
DX: K85.20 Alcohol induced acute pancreatitis without necrosis or infection (principal); K86.3 Pseudocyst of pancreas; F10.10 Alcohol abuse, uncomplicated; K76.0 Fatty (change of) liver, not elsewhere classified
CPT/HCPCS: 36415; 74176; 80048; 80053; 80307; 81003; 82248; 83690; 83735; 85025; 85610; 85730; 96361; 96374; 96375; 99285; J2405; J7030